=== PATIENT | female | born 1930 | race Caucasian/White ===

== ENCOUNTER 2018-02-28 12:12 | Inpatient (IN) | payer MEDICARE, OTHER ==
--- NOTE | 2018-02-28 12:54 | PDOC ---
History of Present Illness - General Chief Complaint: Shortness of Breath Stated Complaint: CHEST PAIN Time Seen by Provider: 02/28/18 12:54 - History of Present Illness Initial Comments: 88 year old female with PMH of PE (2 years prior on Eliquis), CHF, and HTN currently in [facility] coming in today to the ED from Dr. Kauffman's office for suspected heart failure. Patients complains fo 2- 3 months of gradually worsening SOB with exertion, BL lower extremity edema, and occasional dry cough. She has had her cardiology appointments delayed because of logistical issues with the facility scheduling. Upon seeing Dr. Wright today, he was concerned enough to send her to the ED for admission. She denies fevers, chills, nausea, vomiting, diarrhea, constipation, urinary frequency, bleeding from any orifice, or other sick symptoms. 02/28/18 13:19 Past History - Past Medical History Allergies/Adverse Reactions: Allergies Allergy/AdvReac Type Severity Reaction Status Date / Time No Known Allergies Allergy Verified 02/28/18 12:14 Cardiac Disorders: Yes (on eliquis HX OF P.E) COPD: No HTN: Yes Thyroid Disease: Yes - Surgical History Abdominal Surgery: Yes (colon ca) - Suicide/Smoking/Psychosocial Hx Smoking History: Never smoked Have you smoked in the past 12 months: No Information on smoking cessation initiated: No Hx Alcohol Use: No Drug/Substance Use Hx: No Substance Use Type: None Review of Systems - Review of Systems Constitutional: No: Chills, Diaphoresis, Fever HEENTM: No: Eye Pain, Blurred Vision Respiratory: Yes: Shortness of Breath, SOB with Exertion. No: Cough, SOB at Rest, Hemoptysis Cardiac (ROS): No: Chest Pain, Irregular Heart Rate, Lightheadedness, Palpitations ABD/GI: No: Constipated, Diarrhea, Nausea, Poor Appetite : No: Burning, Dysuria, Discharge, Hematuria, Urgency Musculoskeletal: No: Back Pain, Joint Pain, Muscle Weakness Integumentary: No: Bruising, Erythema, Flushing Neurological: No: Headache, Numbness, Paresthesia *Physical Exam - Vital Signs Last Vital Signs Temp Pulse Resp BP Pulse Ox 97.3 F L 85 18 121/78 98 02/28/18 12:14 02/28/18 12:14 02/28/18 12:14 02/28/18 12:14 02/28/18 12:14 - Physical Exam General Appearance: Yes: Nourished, Appropriately Dressed. No: Apparent Distress HEENT: positive: EOMI, LUZ, Normal ENT Inspection, Normal Voice Neck: positive: Trachea midline, Normal Thyroid, Supple. negative: Tender, Rigid Respiratory/Chest: positive: Crackles (bilaeral LL crackles). negative: Chest Tender, Lungs Clear, Normal Breath Sounds, Respiratory Distress, Accessory Muscle Use Cardiovascular: positive: Regular Rhythm, Regular Rate, JVD. negative: Murmur Gastrointestinal/Abdominal: positive: Normal Bowel Sounds, Flat, Soft. negative : Tender Lymphatic: negative: Adenopathy, Tenderness Musculoskeletal: positive: Normal Inspection, Other (general weakness). negative: Decreased Range of Motion Extremity: positive: Normal Range of Motion, Tender, Pedal Edema, Swelling, Erythema, Other (Bilateral LE pitting edema 3+ to the lower thigh). negative: Normal Inspection Integumentary: positive: Dry, Warm, Erythema, Swelling, Other (Swelling and erythema in bilateral lower extremities). negative: Normal Color ED Treatment Course - LABORATORY CBC & Chemistry Diagram: 02/28/18 13:45 02/28/18 13:45 Medical Decision Making - Medical Decision Making 88 year old female presenting with worsening SOB and LE edema with PE significant fro bilateral crackles and elevated JVD along with CXR demonstrating vascular congestion with some possible hilar fullness. Labs mostly WNL (normal BNP and troponin) but these are non-specific for CHF. EKG demonstrated NSR, without ST wave elevations, and QT prolongation (corrected) at 495. UA did demonstrate a UTI for which we gave 1 G ceftriaxone. Give overall signs of fluid overload, she was also given 40 IV furosemide. Patient admitted under Dr. Sanders with doppler and echo pending. Consult placed for Dr. Kauffman. 02/28/18 15:38 *DC/Admit/Observation/Transfer Diagnosis at time of Disposition: Heart failure Qualifiers: Heart failure type: other Qualified Code(s): I50.89 - Other heart failure; I50.8 - Other heart failure - Discharge Dispostion Condition at time of disposition: Stable Admit: Yes - Referrals - Patient Instructions - Post Discharge Activity
--- NOTE | 2018-02-28 13:57 | PDOC ---
Attending Attestation - Resident Resident Name: Lillie De La Torre - ED Attending Attestation I have performed the following: I have examined & evaluated the patient, The case was reviewed & discussed with the resident, I agree w/resident's findings & plan, Exceptions are as noted - HPI HPI: 02/28/18 15:43 Ms Pink is an 88 yo F h/o PE (2 years prior on Eliquis), CHF, and HTN currently in [facility] coming in today to the ED from Dr. Kauffman's office for fluid overloading, shortness of breath, dyspnea on exertion, suspected diastolic heart failure. She denies fevers, chills, nausea, vomiting, diarrhea, constipation, urinary frequency, bleeding from any orifice, or other sick symptoms. - Physicial Exam PE: 02/28/18 15:45 General Appearance: Yes: Nourished, Appropriately Dressed. No: Apparent Distress Neck: positive: Trachea midline, Normal Thyroid, Supple. negative: Tender, Rigid Respiratory/Chest: positive: Crackles (bilaeral LL crackles). Cardiovascular: positive: Regular Rhythm, Regular Rate, JVD. Gastrointestinal/Abdominal: positive: Normal Bowel Sounds, Flat, Soft. negative : Tender Musculoskeletal: positive: Normal Inspection, Other (general weakness). negative: Decreased Range of Motion Extremity: positive: Normal Range of Motion, Tender, Pedal Edema, Swelling, Erythema - Medical Decision Making 02/28/18 15:45 88 yo F presenting with shortness of breath, probable diastolic heart failure Pt does have a prior h/o PE (currently anticoagulated, pt reports compliance) No fevers or cough to suggest pneumonia Will do labs Will do EKG Will do CXR Will plan to admit 02/28/18 15:47 Laboratory Tests 02/28/18 02/28/18 02/28/18 13:45 13:45 13:45 WBC 9.0 Hgb 11.6 Hct 34.8 Plt Count 283 BUN 36 H Creatinine 0.8 CK-MB (CK-2) 3.468 Troponin I < 0.02 B-Natriuretic Peptide 249.85 Ur Leukocyte Esterase 2+ H Urine WBC (Auto) 18 EKG: SR rate of 85 bpm, axis nml, intervals nml, no TA/STD, t waves upright Case reviewed with Dr Biggs Will admit to her service Clinical impression: diastolic heart failure, initial presentation
[2018-02-28 14:04] LABS: EOS % 2.8 % (0-4.5); HEMOGLOBIN 11.6 GM/dL (10.7-15.3); MCH 29.5 pg (25.7-33.7); MEAN PLT VOLUME 6.8 fl (7.5-11.1); RBC 3.92 M/mm3 (3.60-5.2); RDW 16.7 % (11.6-15.6)
[2018-02-28 14:05] LABS: URINE APPEARANCE CLEAR; URINE BILIRUBIN NEGATIVE (<2.0 mg/dL); URINE COLOR LTYELLOW; URINE GLUCOSE (UA) NEGATIVE (NEGATIVE); URINE KETONE NEGATIVE (NEGATIVE); URINE NITRITE NEGATIVE (NEGATIVE); URINE PROTEIN NEGATIVE (NEGATIVE); URINE UROBILINOGEN NEGATIVE mg/dL (0.2-1.0)
[2018-02-28 14:06] LABS: BASO % 0.8 % (0-2.0); HEMATOCRIT 34.8 % (32.4-45.2); LYMPH % 17.4 % (8-40); MCHC 33.2 g/dl (32.0-36.0); MEAN CELL VOLUME 88.8 fl (80-96); PLATELET COUNT 283 K/MM3 (134-434)
[2018-02-28 14:07] LABS: URINE LEUK ESTERASE 2+ (NEGATIVE)
[2018-02-28 14:09] LABS: EPI CELLS RARE /HPF (FEW); URINE HYALINE CAST 6 /lpf; URINE MUCUS RARE
[2018-02-28 14:25] LABS: CHLORIDE 106 mmol/L (98-107); SODIUM 143 mmol/L (136-145)
[2018-02-28 14:29] LABS: ALBUMIN 3.9 g/dl (3.4-5.0); ANION GAP 6 (8-16); BLOOD UREA NITROGEN 36 mg/dL (7-18); CALCIUM 9.5 mg/dL (8.5-10.1); CO2 31 mmol/L (21-32); GLUCOSE,RANDOM 102 mg/dL (74-106)
[2018-02-28 14:30] LABS: POTASSIUM 4.1 mmol/L (3.5-5.1)
[2018-02-28 14:32] LABS: BILIRUBIN,TOTAL 0.5 mg/dL (0.2-1.0); CREATININE 0.8 mg/dL (0.55-1.02); SGPT/ALT 34 U/L (12-78)
[2018-02-28 14:35] LABS: ALK PHOS 83 U/L (45-117); N-TERMINAL BNP 249.85 pg/ml (5-450); SGOT/AST 46 U/L (15-37)
--- NOTE | 2018-02-28 15:08 | EKG ---
Test Reason : Blood Pressure : / mmHG Vent. Rate : 085 BPM Atrial Rate : 085 BPM P-R Int : 172 ms QRS Dur : 094 ms QT Int : 416 ms P-R-T Axes : 036 -12 015 degrees QTc Int : 495 ms NORMAL SINUS RHYTHM PROLONGED QT ABNORMAL ECG NO PREVIOUS ECGS AVAILABLE Confirmed by PAN AGUILLON MD ([id number]) on 02/28/2018 3:07:50 PM Referred By: Confirmed By:PAN AGUILLON MD
[2018-02-28] MEDS ORDERED: FUROSEMIDE 40 MG/4 ML INJECTABLE VIAL IVPUSH ONE (15:10)
[2018-02-28] MEDS ORDERED: CEFTRIAXONE 1 GM in DEXTROSE 5%-WATER - 100 ML IVPB ONE (15:44)
[2018-02-28] MEDS ORDERED: FUROSEMIDE 40 MG/4 ML INJECTABLE VIAL ONE (16:46)
[2018-02-28] MEDS ORDERED: CEFTRIAXONE 1 GM/50 ML BAG ONE (16:46)
[2018-02-28 17:33] VITALS: BMI 29.2
--- NOTE | 2018-02-28 20:17 | HP ---
Admitting History and Physical - Primary Care Physician PCP: Dara Biggs - Admission History of Present Illness: 88 year old female with PMH of PE (2 years prior on Eliquis), CHF, and HTN currently in [facility] coming in today to the ED from Dr. Kauffman's office for suspected heart failure. Patients complains fo 2- 3 months of gradually worsening SOB with exertion, BL lower extremity edema, and occasional dry cough. She has had her cardiology appointments delayed because of logistical issues with the facility scheduling. Upon seeing Dr. Wright today, he was concerned enough to send her to the ED for admission. She denies fevers, chills, nausea, vomiting, diarrhe. - Past Medical History Cardiovascular: Yes: CHF, HTN - Smoking History Smoking history: Never smoked Have you smoked in the past 12 months: No - Alcohol/Substance Use Hx Alcohol Use: No Home Medications - Allergies Allergies/Adverse Reactions: Allergies Allergy/AdvReac Type Severity Reaction Status Date / Time No Known Allergies Allergy Verified 02/28/18 12:14 - Home Medications Home Medications: Ambulatory Orders Apixaban [Eliquis] 5 mg PO BID 02/28/18 Brinzolamide/Brimonidine Tart [Simbrinza 1%-0.2% Eye Drops] 1 drop OS BID Furosemide [Lasix] 40 mg PO DAILY 02/28/18 Hydrochlorothiazide [Hctz -] 25 mg PO DAILY 02/28/18 Labetalol HCl [Normodyne -] 400 mg PO BID 02/28/18 Losartan Potassium 100 mg PO DAILY 02/28/18 Melatonin 20 mg PO HS 02/28/18 Potassium Chloride 20 meq PO DAILY 02/28/18 Thyroid,Pork [[place] Thyroid] 180 mg PO DAILY 02/28/18 Travoprost [Travatan Z] 1 drop OS HS 02/28/18 Review of Systems - Review of Systems Respiratory: reports: SOB Physical Examination Vital Signs: Vital Signs Temperature 98.2 F 02/28/18 19:05 Pulse Rate 77 02/28/18 19:05 Respiratory Rate 22 02/28/18 19:05 Blood Pressure 132/65 02/28/18 19:05 O2 Sat by Pulse Oximetry (%) 96 02/28/18 19:05 Constitutional: Yes: No Distress HENT: Yes: Atraumatic Neck: Yes: Supple Cardiovascular: Yes: Regular Rate and Rhythm Respiratory: Yes: Rhonchi Gastrointestinal: Yes: Normal Bowel Sounds Extremities: Yes: Other (red , warm , swollen) Edema: Yes Peripheral Pulses WNL: Yes Neurological: Yes: Alert, Oriented Labs: CBC, BMP 02/28/18 13:45 02/28/18 13:45 Problem List - Problems (1) HTN (hypertension) Assessment/Plan: on meds stable Code(s): I10 - ESSENTIAL (PRIMARY) HYPERTENSION Qualifiers: Hypertension type: essential hypertension Qualified Code(s): I10 - Essential (primary) hypertension (2) Heart failure Assessment/Plan: on meds stable Code(s): I50.9 - HEART FAILURE, UNSPECIFIED Qualifiers: Heart failure type: other Qualified Code(s): I50.89 - Other heart failure; I50.8 - Other heart failure (3) Hypothyroidism Assessment/Plan: on med Code(s): E03.9 - HYPOTHYROIDISM, UNSPECIFIED (4) Cellulitis Assessment/Plan: will start abx will get id involved Code(s): L03.90 - CELLULITIS, UNSPECIFIED Assessment/Plan Laboratory Tests 02/28/18 02/28/18 02/28/18 13:45 13:45 13:45 WBC 9.0 RBC 3.92 Hgb 11.6 Hct 34.8 MCV 88.8 MCH 29.5 MCHC 33.2 RDW 16.7 H Plt Count 283 MPV 6.8 L Neutrophils % 73.0 Lymphocytes % 17.4 Monocytes % 6.0 Eosinophils % 2.8 Basophils % 0.8 Sodium 143 Potassium 4.1 Chloride 106 Carbon Dioxide 31 Anion Gap 6 L BUN 36 H Creatinine 0.8 Creat Clearance w eGFR > 60 Random Glucose 102 Calcium 9.5 Total Bilirubin 0.5 AST 46 H ALT 34 Alkaline Phosphatase 83 Creatine Kinase 274 H Creatine Kinase Index 1.2 CK-MB (CK-2) 3.468 Troponin I < 0.02 B-Natriuretic Peptide 249.85 Total Protein 7.0 Albumin 3.9 TSH Urine Color Ltyellow Urine Appearance Clear Urine pH 5.0 Ur Specific [place] 1.009 Urine Protein Negative Urine Glucose (UA) Negative Urine Ketones Negative Urine Blood Negative Urine Nitrite Negative Urine Bilirubin Negative Urine Urobilinogen Negative Ur Leukocyte Esterase 2+ H Urine WBC (Auto) 18 Urine RBC (Auto) 1 Ur Epithelial Cells Rare Hyaline Casts 6 Urine Mucus Rare 02/28/18 14:00 WBC RBC Hgb Hct MCV MCH MCHC RDW Plt Count MPV Neutrophils % Lymphocytes % Monocytes % Eosinophils % Basophils % Sodium Potassium Chloride Carbon Dioxide Anion Gap BUN Creatinine Creat Clearance w eGFR Random Glucose Calcium Total Bilirubin AST ALT Alkaline Phosphatase Creatine Kinase Creatine Kinase Index CK-MB (CK-2) Troponin I B-Natriuretic Peptide Total Protein Albumin TSH 0.82 Urine Color Urine Appearance Urine pH Ur Specific [place] Urine Protein Urine Glucose (UA) Urine Ketones Urine Blood Urine Nitrite Urine Bilirubin Urine Urobilinogen Ur Leukocyte Esterase Urine WBC (Auto) Urine RBC (Auto) Ur Epithelial Cells Hyaline Casts Urine Mucus Active Medications Generic Name Dose Route Start Last Admin Trade Name Freq PRN Reason Stop Dose Admin Acetaminophen 650 mg 02/28/18 20:19 02/28/18 20:44 Tylenol - PO 650 mg Q6H PRN Administration FEVER Apixaban 5 mg 02/28/18 22:00 03/01/18 10:02 Eliquis - PO 5 mg BID LISETH Administration Furosemide 40 mg 03/02/18 06:00 Lasix Injection - IVPUSH BID@0600,1400 LISETH Ceftriaxone Sodium 1 gm/ 50 mls @ 200 mls/hr 02/28/18 23:00 02/28/18 23:17 Dextrose IVPB 200 mls/hr HS LISETH Administration Labetalol HCl 400 mg 02/28/18 22:00 03/01/18 10:03 Normodyne - PO 400 mg BID LISETH Administration Losartan Potassium 100 mg 03/01/18 10:00 03/01/18 10:02 Cozaar - PO 100 mg DAILY LISETH Administration Melatonin 20 mg 02/28/18 22:00 02/28/18 21:46 Melatonin PO 20 mg HS LISETH Administration Non-Formulary Medication 1 drop 02/28/18 22:00 Brinzolamide/Brimonidine Tart [Simbrinza 1%-0.2% Eye Drops] OS BID [facility] Non-Formulary Medication 1 drop 02/28/18 22:00 Travoprost [Travatan Z] OS HS LISETH Spironolactone 25 mg 03/01/18 22:00 Aldactone - PO BID LISETH
[2018-02-28] MEDS: ACETAMINOPHEN 325 MG TABLET (FP) PO PRN (20:44)
[2018-02-28] MEDS: APIXABAN 5 MG TABLET PO SCH (21:45)
[2018-02-28] MEDS: MELATONIN 5 MG TABLETS PO SCH (21:46)
[2018-02-28] MEDS: LABETALOL HCL 200 MG TABLET (FP) PO SCH (21:46)
[2018-02-28] MEDS ORDERED: PATIENT'S OWN MEDICATION (NON-FORMULARY) (Travoprost [Travatan Z] 1 DROP) OS SCH (22:00)
[2018-02-28] MEDS ORDERED: PATIENT'S OWN MEDICATION (NON-FORMULARY) (Brinzolamide/Brimonidine Tart [Simbrinza 1%-0.2% OS SCH (22:00)
[2018-02-28] MEDS ORDERED: cefTRIAXone SODIUM 1 GM VIAL ONE (23:08)
[2018-02-28] MEDS ORDERED: DEXTROSE 5%-WATER - 50 ML IVPB ONE (23:09)
[2018-02-28] MEDS: CEFTRIAXONE 1 GM in DEXTROSE 5%-WATER - 50 ML IVPB SCH (23:17)
[2018-03-01 06:49] LABS: BASO % 0.6 % (0-2.0); EOS % 3.8 % (0-4.5); HEMATOCRIT 31.1 % (32.4-45.2); HEMOGLOBIN 10.6 GM/dL (10.7-15.3); LYMPH % 23.1 % (8-40); MCH 30.1 pg (25.7-33.7); MEAN CELL VOLUME 88.4 fl (80-96); MONO % 9.3 % (3.8-10.2); NEUT % 63.2 % (42.8-82.8); PLATELET COUNT 276 K/MM3 (134-434); RBC 3.52 M/mm3 (3.60-5.2); RDW 16.3 % (11.6-15.6)
[2018-03-01 07:14] LABS: ALBUMIN 3.2 g/dl (3.4-5.0); ANION GAP 5 (8-16); BILIRUBIN,TOTAL 0.5 mg/dL (0.2-1.0); BLOOD UREA NITROGEN 39 mg/dL (7-18); CALCIUM 8.9 mg/dL (8.5-10.1); CHLORIDE 105 mmol/L (98-107); CO2 32 mmol/L (21-32); CREATININE 0.8 mg/dL (0.55-1.02); GLUCOSE,RANDOM 95 mg/dL (74-106); POTASSIUM 3.3 mmol/L (3.5-5.1); SGOT/AST 20 U/L (15-37); SGPT/ALT 25 U/L (12-78); SODIUM 142 mmol/L (136-145); TOT PROT 5.7 g/dl (6.4-8.2)
[2018-03-01 07:15] LABS: ALK PHOS 68 U/L (45-117)
[2018-03-01] MEDS ORDERED: HYDROCHLOROTHIAZIDE 25 MG TABLET (FP) PO SCH (10:00)
[2018-03-01] MEDS ORDERED: FUROSEMIDE 40 MG TABLET (FP) PO SCH (10:00)
[2018-03-01] MEDS: LOSARTAN POTASSIUM 50 MG TABLET (FP) PO SCH (10:02)
[2018-03-01] MEDS: APIXABAN 5 MG TABLET PO SCH ×2 (10:02→21:11)
[2018-03-01] MEDS: LABETALOL HCL 200 MG TABLET (FP) PO SCH ×2 (10:03→21:12)
--- NOTE | 2018-03-01 12:23 | CON.ID ---
Consult Consult Specialty:: infectious diseases Reason for Consultation:: cellulitits of the leg - History of Present Illness Chief Complaint: swelling and pain of the legs History of Present Illness: 88 year old female with PMH of PE (2 years prior on Eliquis), CHF, and HTN currently in [facility] coming in today to the ED from Dr. Kauffman's office for suspected heart failure. Patients complains fo 2- 3 months of gradually worsening SOB with exertion, BL lower extremity edema, and occasional dry cough. She has had her cardiology appointments delayed because of logistical issues with the facility scheduling. Upon seeing Dr. Wright today, he was concerned enough to send her to the ED for admission. She denies fevers, chills, nausea, vomiting, diarrhe. - History Source History Provided By: Patient Limitations to Obtaining History: No Limitations - Past Medical History Cardio/Vascular: Yes: CHF, HTN - Alcohol/Substance Use Hx Alcohol Use: No - Smoking History Smoking history: Never smoked Have you smoked in the past 12 months: No Home Medications - Allergies Allergies/Adverse Reactions: Allergies Allergy/AdvReac Type Severity Reaction Status Date / Time No Known Allergies Allergy Verified 02/28/18 12:14 - Home Medications Home Medications: Ambulatory Orders Apixaban [Eliquis] 5 mg PO BID 02/28/18 Brinzolamide/Brimonidine Tart [Simbrinza 1%-0.2% Eye Drops] 1 drop OS BID Furosemide [Lasix] 40 mg PO DAILY 02/28/18 Hydrochlorothiazide [Hctz -] 25 mg PO DAILY 02/28/18 Labetalol HCl [Normodyne -] 400 mg PO BID 02/28/18 Losartan Potassium 100 mg PO DAILY 02/28/18 Melatonin 20 mg PO HS 02/28/18 Potassium Chloride 20 meq PO DAILY 02/28/18 Thyroid,Pork [[place] Thyroid] 180 mg PO DAILY 02/28/18 Travoprost [Travatan Z] 1 drop OS HS 02/28/18 Furosemide [Lasix -] 40 mg PO DAILY tablet 03/03/18 Spironolactone [Aldactone -] 25 mg PO BID #60 tablet 03/03/18 Review of Systems - Review of Systems Constitutional: reports: No Symptoms Eyes: reports: No Symptoms HENT: reports: No Symptoms Neck: reports: No Symptoms Cardiovascular: reports: No Symptoms Respiratory: reports: No Symptoms Gastrointestinal: reports: No Symptoms Genitourinary: reports: No Symptoms Musculoskeletal: reports: Other Integumentary: reports: Change in Color, Erythema Neurological: reports: No Symptoms Endocrine: reports: No Symptoms Hematology/Lymphatic: reports: No Symptoms Psychiatric: reports: No Symptoms Physical Exam Vital Signs: Vital Signs Temperature 98.1 F 03/01/18 01:00 Pulse Rate 77 03/01/18 01:00 Respiratory Rate 24 03/01/18 01:00 Blood Pressure 123/61 03/01/18 01:00 O2 Sat by Pulse Oximetry (%) 96 03/01/18 06:00 Constitutional: Yes: Calm, Mild Distress Eyes: Yes: Conjunctiva Clear HENT: Yes: Atraumatic, Normocephalic Neck: Yes: Supple Cardiovascular: Yes: Regular Rate and Rhythm Respiratory: Yes: Regular, On Nasal O2, Poor Air Entry Gastrointestinal: Yes: Normal Bowel Sounds, Soft Musculoskeletal: Yes: Other Extremities: Yes: Erythema Edema: LLE: 2+, RLE: 2+ Integumentary: Yes: Erythema Neurological: Yes: Alert, Oriented Psychiatric: Yes: Alert, Oriented Labs: CBC, BMP 03/01/18 05:35 03/01/18 05:35 Imaging - Results Chest X-ray: Report Reviewed, Image Reviewed Assessment/Plan Problem List - Problems (1) Acute on chronic diastolic (congestive) heart failure Code(s): I50.33 - ACUTE ON CHRONIC DIASTOLIC (CONGESTIVE) HEART FAILURE (2) HTN (hypertension) Code(s): I10 - ESSENTIAL (PRIMARY) HYPERTENSION Qualifiers: Hypertension type: essential hypertension Qualified Code(s): I10 - Essential (primary) hypertension (3) Hypothyroidism Code(s): E03.9 - HYPOTHYROIDISM, UNSPECIFIED (4) Pulmonary embolism Code(s): I26.99 - OTHER PULMONARY EMBOLISM WITHOUT ACUTE COR PULMONALE Qualifiers: Pulmonary embolism type: other 5 cellulittis of the leg cx report noted plan patient on ceftriaxone will continue ceftriaxone elevation of the legs rest as per cardiology
--- NOTE | 2018-03-01 12:51 | PN ---
Progress Note (short form) - Note Progress Note: Chief Complaint/Indication: Events noted, notes reviewed, progressive exertional dyspnea and increasing bilateral lower extremity edema in a patient with known history of probable coronary artery disease angina pectoris, diastolic left ventricular dysfunction, hypertensive cardiovascular disease and recent pulmonary embolism. History of Present Illness: Seen and examined on telemetry. Full consult dictated Echocardiography performed January 20, 2018 revealed concentric left ventricular hypertrophy with overall preserved left ventricular systolic function and ejection fraction estimated greater than 55%, mild diastolic left ventricular dysfunction, normal right ventricular size and systolic function, left atrial dilatation, thickened mitral valve leaflets with densely calcified mitral annulus and mild trans-valvular gradient with calculated mitral valve area 1.8 cm by pressure half-time, aortic valve leaflet sclerosis/calcification but no evidence of aortic valve stenosis, trace tricuspid valve regurgitation and no pericardial effusion. Allergies: No known medical allergies. Medical therapy at home: 1. Labetalol 200 mg tablet, 2 tablets twice a day. 2. Cozaar 100 mg once a day. 3. Lasix 40 mg once a day. 4. Hydrochlorothiazide 25 mg once a day. 5. K-Dur 20 milliequivalents once a day. 6. Eliquis 5 mg twice a day. 7. [place] Thyroid 180 mg once a day. 8. Eye drops including Travatan, Prednisone Acetate and Simbrinza as prescribed. Current Medications Acetaminophen (Tylenol -) 650 mg PO Q6H PRN PRN Reason: FEVER Last Admin: 02/28/18 20:44 Dose: 650 mg Apixaban (Eliquis -) 5 mg PO BID [facility] Last Admin: 03/01/18 10:02 Dose: 5 mg Furosemide (Lasix Injection -) 40 mg PO DAILY @0600,1400 [facility] Ceftriaxone Sodium 1 gm/ (Dextrose) 50 mls @ 200 mls/hr IVPB [facility] Last Admin: 02/28/18 23:17 Dose: 200 mls/hr Labetalol HCl (Normodyne -) 400 mg PO BID [facility] Last Admin: 03/01/18 10:03 Dose: 400 mg Losartan Potassium (Cozaar -) 100 mg PO DAILY [facility] Last Admin: 03/01/18 10:02 Dose: 100 mg Melatonin (Melatonin) 20 mg PO [facility] Last Admin: 02/28/18 21:46 Dose: 20 mg Non-Formulary Medication (Brinzolamide/Brimonidine Tart [Simbrinza 1%-0.2% Eye Drops]) 1 drop OS BID LISETH Non-Formulary Medication (Travoprost [Travatan Z]) 1 drop OS HS [facility] Review of Systems: Constitutional: Denies fever, chills or weight loss Head and Neck: Denies headache, photophobia or blurring of vision Respiratory: Denies cough or sputum production Cardiovascular: As noted above Gastrointestinal: Denies nausea, vomiting, diarrhea, constipation or abdominal discomfort Genitourinary: Denies urgency or incontinence Musculoskeletal: History of degenerative joint disease Endocrine: Hypothyroidism Physical Examination: Last Vital Signs Temp Pulse Resp BP Pulse Ox 98.1 F 77 24 123/61 96 03/01/18 01:00 03/01/18 01:00 03/01/18 01:00 03/01/18 01:00 03/01/18 06:00 Intake & Output 02/26/18 02/27/18 02/28/18 03/01/18 23:59 23:59 23:59 23:59 Intake Total 170 Output Total 500 Balance 170 -500 Weight 170 lb 168 lb 8 oz General: Awake, alert, oriented and calm Eyes: Pupils are equally reactive to light and accommodation external ocular muscles are intact anicteric sclera Neck: Supple negative JVD no bruit appreciated Heart: S1 and S2 regular rate and rhythm grade 1-2/6 systolic ejection murmur no clicks or gallops Lungs: Diminished breath sounds at the bases bilaterally with bilateral basal rales Chest: No chest wall deformity or chest wall tenderness Abdomen: Soft and benign normoactive bowel sounds no organomegaly incisional hernia was noted Extremities: 2-3+ bilateral edema and intact distal pulses no calf tenderness ECG: Baseline artifact sinus rhythm at 76 bpm with a minor right-sided conduction delay and nonspecific T wave abnormality no prior EKG available for comparison. Lab Data: Troponin, BNP 02/28/18 13:45 Troponin I < 0.02 B-Natriuretic Peptide 249.85 CBC, BMP 03/01/18 05:35 03/01/18 05:35 Hepatic Panel Total Bilirubin 0.5 mg/dL (0.2-1.0) 03/01/18 05:35 AST 20 U/L (15-37) 03/01/18 05:35 ALT 25 U/L (12-78) 03/01/18 05:35 Alkaline Phosphatase 68 U/L (45-117) 03/01/18 05:35 Albumin 3.2 g/dl (3.4-5.0) L 03/01/18 05:35 ASSESSMENT: 1. Clinical presentation is consistent with acute on chronic class II-III [place] [employer] classification left ventricular failure related to diastolic left ventricular dysfunction. 2. Probable coronary artery disease with no clinical angina pectoris endothelial dysfunction. 3. Mitral valve disease mitral valve stenosis mild in severity. 4. Pulmonary hypertension to be excluded as a culprit to the above-noted clinical presentation with persistent/increasing bilateral lower extremity edema. 5. Hypertensive cardiovascular disease. 6. Hypothyroidism. 7. History of recent pulmonary thromboembolism. 8. History of a renal mass. 9. Chronic bilateral lower extremity edema most likely related to chronic venous insufficiency but as noted above pulmonary hypertension to be excluded as a culprit although echocardiography study performed January 20, 2018 did not reveal any evidence of pulmonary hypertension. 10. History of degenerative joint disease. RECOMMENDATIONS: 1. Continue Labetolol. 2. Continue Cozaar. 3. Continue Lasix but initiate IV Lasix. 4. Discontinue Hydrochlorothiazide and initiate Aldactone therapy with caution. 5. Continue Eliquis therapy with close monitoring of CBC. 6. Recommend bilateral lower extremity venous duplex study for evaluation of venous insufficiency. Thank you for your kind referral Jignesh Wright M.D.
--- NOTE | 2018-03-01 19:14 | PN ---
Progress Note, Physician - Current Medication List Current Medications: Active Medications Acetaminophen (Tylenol -) 650 mg PO Q6H PRN PRN Reason: FEVER Last Admin: 02/28/18 20:44 Dose: 650 mg Apixaban (Eliquis -) 5 mg PO BID [facility] Last Admin: 03/01/18 10:02 Dose: 5 mg Furosemide (Lasix Injection -) 40 mg IVPUSH BID@0600,1400 [facility] Ceftriaxone Sodium 1 gm/ (Dextrose) 50 mls @ 200 mls/hr IVPB HS [facility] Last Admin: 02/28/18 23:17 Dose: 200 mls/hr Labetalol HCl (Normodyne -) 400 mg PO BID [facility] Last Admin: 03/01/18 10:03 Dose: 400 mg Losartan Potassium (Cozaar -) 100 mg PO DAILY [facility] Last Admin: 03/01/18 10:02 Dose: 100 mg Melatonin (Melatonin) 20 mg PO [facility] Last Admin: 02/28/18 21:46 Dose: 20 mg Non-Formulary Medication (Brinzolamide/Brimonidine Tart [Simbrinza 1%-0.2% Eye Drops]) 1 drop OS BID [facility] Non-Formulary Medication (Travoprost [Travatan Z]) 1 drop OS [facility] Spironolactone (Aldactone -) 25 mg PO BID [facility] - Objective Vital Signs: Vital Signs Temperature 97.8 F 03/01/18 18:00 Pulse Rate 78 03/01/18 18:00 Respiratory Rate 22 03/01/18 18:00 Blood Pressure 171/73 03/01/18 18:00 O2 Sat by Pulse Oximetry (%) 93 L 03/01/18 10:00 HENT: Yes: Atraumatic Cardiovascular: Yes: Regular Rate and Rhythm Respiratory: Yes: CTA Bilaterally Gastrointestinal: Yes: Normal Bowel Sounds Extremities: Yes: Other (red and warm) Neurological: Yes: Alert, Oriented Labs: CBC, BMP 03/01/18 05:35 03/01/18 05:35 Problem List - Problems (1) HTN (hypertension) Assessment/Plan: on meds stable Code(s): I10 - ESSENTIAL (PRIMARY) HYPERTENSION Qualifiers: Hypertension type: essential hypertension Qualified Code(s): I10 - Essential (primary) hypertension (2) Heart failure Code(s): I50.9 - HEART FAILURE, UNSPECIFIED Qualifiers: Heart failure type: other Qualified Code(s): I50.89 - Other heart failure; I50.8 - Other heart failure (3) Abdominal wall cellulitis Code(s): L03.311 - CELLULITIS OF ABDOMINAL WALL (4) Cellulitis Assessment/Plan: iv abx Code(s): L03.90 - CELLULITIS, UNSPECIFIED
--- NOTE | 2018-03-01 19:49 | CONS ---
DATE OF CONSULTATION: 03/01/2018 REQUESTING PHYSICIAN: Dara Biggs M.D. CHIEF COMPLAINT: Dyspnea, increasing bilateral lower extremity edema. HISTORY OF PRESENT ILLNESS: The patient is new to our service, was evaluated in the office yesterday. An 88-year-old female of descent with known history of probable coronary artery disease, angina pectoris, diastolic left ventricular dysfunction with chronic class 1 to 2 [place] [employer] classification left ventricular function, mitral valve disease, mitral valve stenosis, mild in severity on echocardiography performed January 20, 2018, hypertensive cardiovascular disease, recent pulmonary thromboembolism, renal mass, evaluation of which is currently in progress, chronic bilateral lower extremity edema, most likely related to chronic venous insufficiency, who was evaluated in the office yesterday with increasing dyspnea and bilateral lower extremity edema which has been noted over the last several weeks. Patient reported dyspnea with minimal physical exertion and in addition increasing bilateral lower extremity edema that has not responded to diuretic therapy administration. The patient currently sleeps in the recliner, and she has denied any orthopnea or paroxysmal nocturnal dyspnea. Patient has denied any history of chest discomfort. Patient denied any palpitation, dizziness, lightheadedness, or syncope. Echocardiography performed January 20, 2018, revealed concentric left ventricular hypertrophy with overall preserved left ventricular systolic function and ejection fraction estimated greater than 55% with mild diastolic left ventricular dysfunction, normal right ventricular size and systolic function, left atrial dilatation, thickened mitral valve leaflets with densely calcified mitral annulus and mild transvalvular gradient with calculated mitral valve area of 1.8 sq cm, blood pressure half time, the aortic valve leaflet sclerosis and calcification with no evidence of aortic valve stenosis and trace tricuspid valve regurgitation with no evidence of pulmonary hypertension. ALLERGIES: No known medical allergies. MEDICATION: Medical therapy at home included labetalol 200 mg tablets, 2 tablets twice a day, Cozaar 100 mg once a day, Lasix 40 mg once a day, hydrochlorothiazide 25 mg once a day, K-Dur 20 mEq once a day, Eliquis 5 mg twice a day, [place] Thyroid 180 mg once a day, eyedrops including Travatan, prednisone, and Simbrinza. PAST MEDICAL HISTORY: Probable coronary artery disease, angina pectoris, diastolic left ventricular dysfunction with chronic class 1 to 2 [place] [employer] classification left ventricular failure, mitral valve disease, mitral valve stenosis, mild in severity, hypertensive cardiovascular disease, hypothyroidism, recent pulmonary thromboembolism, renal mass, chronic bilateral lower extremity edema, most likely related to chronic venous insufficiency, and degenerative joint disease. Patient denied any history of diabetes mellitus or hypercholesterolemia. PAST SURGICAL HISTORY: Dental extractions and subsequent dental implants, tonsillectomy, colon carcinoma, post colectomy, and history of hysterectomy. SOCIAL HISTORY: Patient currently residing at an assisted living facility, denies tobacco abuse or alcohol intake. FAMILY HISTORY: No family history of premature coronary artery disease. REVIEW OF SYSTEMS: Head and neck: Denies headache, photophobia, blurring of vision. Respiratory: No cough, sputum production. Cardiovascular: As noted above. Gastrointestinal: Denies nausea, vomiting, diarrhea, constipation, or abdominal discomfort. Genitourinary: No urgency or frequency. Musculoskeletal: Degenerative joint disease. Endocrine: Hypothyroidism. PHYSICAL EXAMINATION: Vital signs: Blood pressure 123/61 mmHg, pulse rate is 77 beats per minute. Head/Neck: Pupils equal, reactive to light and accommodation. Extraocular muscles intact. Anicteric sclerae. Negative JVD. No bruit appreciated. Chest: Diminished breath sounds at the bases bilaterally with bilateral basal rales. Cardiovascular: S1, S2. Regularly rate and rhythm. Grade 1 to 2 over 6 systolic ejection murmur. No clicks or gallops. Abdomen: Soft, benign. Normoactive bowel sounds. Extremity: 2 to 3 plus bilateral edema. Intact distal pulses. No calf tenderness. Electrocardiogram reveals sinus rhythm with a minor right-sided conduction delay and nonspecific T wave abnormality. Troponin less than 0.02. BNP 249. CBC revealed white cell count 7.0, hemoglobin 10.6, platelets 276. Basic metabolic panel revealed sodium 142, potassium 3.3, BUN 39, creatinine 0.8, glucose 95, AST 20, ALT 25. ASSESSMENT: 1. Clinical presentation is consistent with [id number] class 2 to 3 [place] [employer] classification left ventricular failure related to diastolic left ventricular dysfunction. 2. Probable coronary artery disease with no clinical angina pectoris. 3. Mitral valve disease, mitral valve stenosis, mild in severity. 4. Pulmonary hypertension to be excluded culprit to the above noted clinical presentation with persistent/increasing bilateral lower extremity edema. 5. Hypertensive cardiovascular disease. 6. Hypothyroidism. 7. History of recent pulmonary thromboembolism. 8. History of renal mass. 9. Chronic bilateral lower extremity edema most likely related to chronic venous insufficiency but as noted above, pulmonary hypertension to be excluded as a culprit, although echocardiography study performed January 20, 2018, and yesterday did not reveal any evidence of pulmonary hypertension. 10. History of degenerative joint disease. RECOMMENDATION: 1. Continuation of labetalol therapy. 2. Continuation of Cozaar therapy. 3. Continuation of Lasix with initiation of IV Lasix. 4. Discontinuation of hydrochlorothiazide therapy, initiation of Aldactone therapy with caution. 5. Continuation of Eliquis therapy with close monitoring of CBC. 6. Recommend bilateral lower extremity venous duplex study for evaluation of venous insufficiency. Thank you for the referral. SHAQUILLE STRICKLAND M.D. [id number] MTDD
[2018-03-01] MEDS ORDERED: PT OWN MED DRAWER 7, Y5N ONE (21:03)
[2018-03-01] MEDS ORDERED: cefTRIAXone SODIUM 1 GM VIAL ONE (21:03)
[2018-03-01] MEDS ORDERED: DEXTROSE 5%-WATER - 50 ML IVPB ONE (21:04)
[2018-03-01] MEDS: CEFTRIAXONE 1 GM in DEXTROSE 5%-WATER - 50 ML IVPB SCH (21:12)
[2018-03-01] MEDS: SPIRONOLACTONE 25 MG TABLET (FP) PO SCH (21:12)
[2018-03-01] MEDS: MELATONIN 5 MG TABLETS PO SCH (21:12)
[2018-03-01] MEDS: ACETAMINOPHEN 325 MG TABLET (FP) PO PRN (21:12)
[2018-03-01] MEDS ORDERED: CALCIUM CARBONATE SUSPENSION - 500 MG/5 ML ML PO PRN (22:51)
[2018-03-02] MEDS: ACETAMINOPHEN 325 MG TABLET (FP) PO PRN ×2 (05:06→20:13)
[2018-03-02] MEDS: FUROSEMIDE 40 MG/4 ML INJECTABLE VIAL IVPUSH SCH ×2 (05:06→14:38)
[2018-03-02 07:10] LABS: BASO % 0.6 % (0-2.0); EOS % 5.3 % (0-4.5); HEMATOCRIT 32.7 % (32.4-45.2); HEMOGLOBIN 10.9 GM/dL (10.7-15.3); LYMPH % 20.2 % (8-40); MCH 29.7 pg (25.7-33.7); MCHC 33.4 g/dl (32.0-36.0); MEAN PLT VOLUME 6.8 fl (7.5-11.1); MONO % 9.6 % (3.8-10.2); NEUT % 64.3 % (42.8-82.8); PLATELET COUNT 265 K/MM3 (134-434); RBC 3.68 M/mm3 (3.60-5.2); RDW 16.2 % (11.6-15.6); WHITE BLOOD COUNT 6.7 K/mm3 (4.0-10.0)
[2018-03-02 07:34] LABS: CHLORIDE 103 mmol/L (98-107); POTASSIUM 3.3 mmol/L (3.5-5.1); SODIUM 142 mmol/L (136-145)
[2018-03-02 07:43] LABS: ANION GAP 7 (8-16); BLOOD UREA NITROGEN 37 mg/dL (7-18); CALCIUM 9.2 mg/dL (8.5-10.1); CO2 32 mmol/L (21-32); GLUCOSE,RANDOM 99 mg/dL (74-106)
[2018-03-02] MEDS: LOSARTAN POTASSIUM 50 MG TABLET (FP) PO SCH (10:05)
[2018-03-02] MEDS: SPIRONOLACTONE 25 MG TABLET (FP) PO SCH ×2 (10:05→22:18)
[2018-03-02] MEDS: LABETALOL HCL 200 MG TABLET (FP) PO SCH ×2 (10:06→22:18)
[2018-03-02] MEDS: APIXABAN 5 MG TABLET PO SCH ×2 (10:06→22:18)
--- NOTE | 2018-03-02 11:21 | PN ---
Progress Note, Physician History of Present Illness: Dyspnea and lower extremity edema improving with diuresis. - Current Medication List Current Medications: Active Medications Acetaminophen (Tylenol -) 650 mg PO Q6H PRN PRN Reason: FEVER Last Admin: 03/02/18 05:06 Dose: 650 mg Apixaban (Eliquis -) 5 mg PO BID [facility] Last Admin: 03/02/18 10:06 Dose: 5 mg Calcium Carbonate (Calcium Carb Oral Suspension -) 500 mg PO Q8H PRN PRN Reason: INDIGESTION Last Admin: 03/01/18 23:25 Dose: 500 mg Furosemide (Lasix Injection -) 40 mg IVPUSH BID@0600,1400 [facility] Last Admin: 03/02/18 05:06 Dose: 40 mg Ceftriaxone Sodium 1 gm/ (Dextrose) 50 mls @ 200 mls/hr IVPB [facility] Last Admin: 03/01/18 21:12 Dose: 200 mls/hr Labetalol HCl (Normodyne -) 400 mg PO BID [facility] Last Admin: 03/02/18 10:06 Dose: 400 mg Losartan Potassium (Cozaar -) 100 mg PO DAILY [facility] Last Admin: 03/02/18 10:05 Dose: 100 mg Melatonin (Melatonin) 20 mg PO [facility] Last Admin: 03/01/18 21:12 Dose: 20 mg Non-Formulary Medication (Brinzolamide/Brimonidine Tart [Simbrinza 1%-0.2% Eye Drops]) 1 drop OS BID [facility] Non-Formulary Medication (Travoprost [Travatan Z]) 1 drop OS [facility] Spironolactone (Aldactone -) 25 mg PO BID [facility] Last Admin: 03/02/18 10:05 Dose: 25 mg - Objective Vital Signs: Vital Signs Temperature 97.4 F L 03/02/18 05:20 Pulse Rate 79 03/02/18 05:20 Respiratory Rate 20 03/02/18 05:20 Blood Pressure 156/83 03/02/18 05:20 O2 Sat by Pulse Oximetry (%) 93 L 03/01/18 21:00 Constitutional: Yes: No Distress, Calm Neck: Yes: Supple Cardiovascular: Yes: Regular Rate and Rhythm Respiratory: Yes: Regular, Diminished, On Nasal O2 Gastrointestinal: Yes: Normal Bowel Sounds, Soft Edema: Yes Edema: LLE: Trace, RLE: Trace Integumentary: Yes: Erythema, Venous Stasis Changes Labs: CBC, BMP 03/02/18 06:38 03/02/18 06:38 Problem List - Problems (1) Acute on chronic diastolic (congestive) heart failure Code(s): I50.33 - ACUTE ON CHRONIC DIASTOLIC (CONGESTIVE) HEART FAILURE (2) HTN (hypertension) Code(s): I10 - ESSENTIAL (PRIMARY) HYPERTENSION Qualifiers: Hypertension type: essential hypertension Qualified Code(s): I10 - Essential (primary) hypertension (3) Hypothyroidism Code(s): E03.9 - HYPOTHYROIDISM, UNSPECIFIED (4) Pulmonary embolism Code(s): I26.99 - OTHER PULMONARY EMBOLISM WITHOUT ACUTE COR PULMONALE Qualifiers: Pulmonary embolism type: other Assessment/Plan Echocardiography performed January 20, 2018 revealed concentric left ventricular hypertrophy with overall preserved left ventricular systolic function and ejection fraction estimated greater than 55%, mild diastolic left ventricular dysfunction, normal right ventricular size and systolic function, left atrial dilatation, thickened mitral valve leaflets with densely calcified mitral annulus and mild trans-valvular gradient with calculated mitral valve area 1.8 cm by pressure half-time, aortic valve leaflet sclerosis/calcification but no evidence of aortic valve stenosis, trace tricuspid valve regurgitation and no pericardial effusion. Echo 02/28/2018: Normal LV size and fxn, functional MS, mild WI, abnl LV compliance 1. Acute on chronic diastolic left ventricular failure improving 2. Probable coronary artery disease with no clinical angina pectoris endothelial dysfunction. 3. Mitral valve disease mitral valve stenosis mild in severity. 4. Hypertensive cardiovascular disease. 5. Hypothyroidism. 6. History of recent pulmonary thromboembolism. 7. History of a renal mass. 8. Chronic bilateral lower extremity edema most likely related to chronic venous insufficiency but as noted above pulmonary hypertension to be excluded as a culprit although echocardiography study performed January 20, 2018 did not reveal any evidence of pulmonary hypertension. 9. History of degenerative joint disease. RECOMMENDATIONS: 1. Continue Labetolol 400 bid 2. Continue Cozaar 100 qd 3. Decrease Lasix 40 IV qd with monitor diuretic response, renal fxn and electrolytes 4. Continue Aldactone 25 bid with caution. 5. Continue Eliquis 5 bid with close monitoring of CBC. 6. Bilateral lower extremity venous duplex study excluded DVT
--- NOTE | 2018-03-02 14:24 | PN ---
Progress Note, Physician History of Present Illness: patient stable lower ext edema and redness improving feels a little better than yesterday - Current Medication List Current Medications: Active Medications Acetaminophen (Tylenol -) 650 mg PO Q6H PRN PRN Reason: FEVER Last Admin: 03/02/18 05:06 Dose: 650 mg Apixaban (Eliquis -) 5 mg PO BID [facility] Last Admin: 03/02/18 10:06 Dose: 5 mg Calcium Carbonate (Calcium Carb Oral Suspension -) 500 mg PO Q8H PRN PRN Reason: INDIGESTION Last Admin: 03/01/18 23:25 Dose: 500 mg Furosemide (Lasix Injection -) 40 mg IVPUSH BID@0600,1400 [facility] Stop: 03/03/18 06:00 Last Admin: 03/02/18 05:06 Dose: 40 mg Furosemide (Lasix Injection -) 40 mg IVPUSH DAILY [facility] Ceftriaxone Sodium 1 gm/ (Dextrose) 50 mls @ 200 mls/hr IVPB HS [facility] Last Admin: 03/01/18 21:12 Dose: 200 mls/hr Labetalol HCl (Normodyne -) 400 mg PO BID [facility] Last Admin: 03/02/18 10:06 Dose: 400 mg Losartan Potassium (Cozaar -) 100 mg PO DAILY [facility] Last Admin: 03/02/18 10:05 Dose: 100 mg Melatonin (Melatonin) 20 mg PO HS [facility] Last Admin: 03/01/18 21:12 Dose: 20 mg Non-Formulary Medication (Brinzolamide/Brimonidine Tart [Simbrinza 1%-0.2% Eye Drops]) 1 drop OS BID [facility] Non-Formulary Medication (Travoprost [Travatan Z]) 1 drop OS HS [facility] Potassium Chloride (K-Dur -) 40 meq PO DAILY [facility] Spironolactone (Aldactone -) 25 mg PO BID [facility] Last Admin: 03/02/18 10:05 Dose: 25 mg - Objective Vital Signs: Vital Signs Temperature 97.8 F 03/02/18 10:00 Pulse Rate 85 03/02/18 10:00 Respiratory Rate 20 03/02/18 10:00 Blood Pressure 117/56 03/02/18 10:00 O2 Sat by Pulse Oximetry (%) 93 L 03/02/18 09:00 Constitutional: Yes: No Distress, Calm Cardiovascular: Yes: Regular Rate and Rhythm Respiratory: Yes: Regular, CTA Bilaterally Gastrointestinal: Yes: Normal Bowel Sounds, Soft Musculoskeletal: Yes: Other Extremities: Yes: Erythema, Other Edema: LLE: 1+, RLE: 1+ Neurological: Yes: Alert, Oriented Psychiatric: Yes: Alert, Oriented Labs: CBC, BMP 03/02/18 06:38 03/02/18 06:38 Assessment/Plan Problem List - Problems (1) Acute on chronic diastolic (congestive) heart failure Code(s): I50.33 - ACUTE ON CHRONIC DIASTOLIC (CONGESTIVE) HEART FAILURE (2) HTN (hypertension) Code(s): I10 - ESSENTIAL (PRIMARY) HYPERTENSION Qualifiers: Hypertension type: essential hypertension Qualified Code(s): I10 - Essential (primary) hypertension (3) Hypothyroidism Code(s): E03.9 - HYPOTHYROIDISM, UNSPECIFIED (4) Pulmonary embolism Code(s): I26.99 - OTHER PULMONARY EMBOLISM WITHOUT ACUTE COR PULMONALE Qualifiers: Pulmonary embolism type: other 5 cellulittis of the leg cx report noted plan we will continue ceftriaxone for senthil will change to oral abx probably by tomorrow rest as per cardio improving
--- NOTE | 2018-03-02 17:01 | PN ---
Progress Note, Physician - Current Medication List Current Medications: Active Medications Acetaminophen (Tylenol -) 650 mg PO Q6H PRN PRN Reason: FEVER Last Admin: 03/02/18 05:06 Dose: 650 mg Apixaban (Eliquis -) 5 mg PO BID [facility] Last Admin: 03/02/18 10:06 Dose: 5 mg Calcium Carbonate (Calcium Carb Oral Suspension -) 500 mg PO Q8H PRN PRN Reason: INDIGESTION Last Admin: 03/01/18 23:25 Dose: 500 mg Furosemide (Lasix Injection -) 40 mg IVPUSH BID@0600,1400 [facility] Stop: 03/03/18 06:00 Last Admin: 03/02/18 14:38 Dose: Not Given Furosemide (Lasix Injection -) 40 mg IVPUSH DAILY [facility] Ceftriaxone Sodium 1 gm/ (Dextrose) 50 mls @ 200 mls/hr IVPB HS [facility] Last Admin: 03/01/18 21:12 Dose: 200 mls/hr Labetalol HCl (Normodyne -) 400 mg PO BID [facility] Last Admin: 03/02/18 10:06 Dose: 400 mg Losartan Potassium (Cozaar -) 100 mg PO DAILY [facility] Last Admin: 03/02/18 10:05 Dose: 100 mg Melatonin (Melatonin) 20 mg PO HS [facility] Last Admin: 03/01/18 21:12 Dose: 20 mg Non-Formulary Medication (Brinzolamide/Brimonidine Tart [Simbrinza 1%-0.2% Eye Drops]) 1 drop OS BID [facility] Non-Formulary Medication (Travoprost [Travatan Z]) 1 drop OS HS [facility] Potassium Chloride (K-Dur -) 40 meq PO DAILY [facility] Spironolactone (Aldactone -) 25 mg PO BID [facility] Last Admin: 03/02/18 10:05 Dose: 25 mg - Objective Vital Signs: Vital Signs Temperature 97.8 F 03/02/18 10:00 Pulse Rate 85 03/02/18 10:00 Respiratory Rate 20 03/02/18 10:00 Blood Pressure 117/56 03/02/18 10:00 O2 Sat by Pulse Oximetry (%) 93 L 03/02/18 09:00 Constitutional: Yes: No Distress HENT: Yes: Atraumatic Neck: Yes: Supple Cardiovascular: Yes: Regular Rate and Rhythm Respiratory: Yes: CTA Bilaterally Gastrointestinal: Yes: Normal Bowel Sounds Extremities: Yes: Other (still warm, redness improved) Edema: Yes Edema: LLE: 1+, RLE: 1+ Neurological: Yes: Alert, Oriented Labs: CBC, BMP 03/02/18 06:38 03/02/18 06:38 Problem List - Problems (1) HTN (hypertension) Assessment/Plan: on meds stable Code(s): I10 - ESSENTIAL (PRIMARY) HYPERTENSION Qualifiers: Hypertension type: essential hypertension Qualified Code(s): I10 - Essential (primary) hypertension (2) Heart failure Assessment/Plan: on meds stable Code(s): I50.9 - HEART FAILURE, UNSPECIFIED Qualifiers: Heart failure type: other Qualified Code(s): I50.89 - Other heart failure; I50.8 - Other heart failure (3) Cellulitis Assessment/Plan: iv abx Code(s): L03.90 - CELLULITIS, UNSPECIFIED
[2018-03-02] MEDS ORDERED: PT OWN MED DRAWER 7, Y5N ONE (21:18)
[2018-03-02] MEDS ORDERED: cefTRIAXone SODIUM 1 GM VIAL ONE (21:23)
[2018-03-02] MEDS ORDERED: DEXTROSE 5%-WATER - 50 ML IVPB ONE (21:23)
[2018-03-02] MEDS: MELATONIN 5 MG TABLETS PO SCH (22:19)
[2018-03-02] MEDS: CEFTRIAXONE 1 GM in DEXTROSE 5%-WATER - 50 ML IVPB SCH (22:19)
[2018-03-03] MEDS ORDERED: PT OWN MED DRAWER 7, Y5N ONE ×2 (05:12→22:50)
[2018-03-03] MEDS: FUROSEMIDE 40 MG/4 ML INJECTABLE VIAL IVPUSH SCH (06:10)
[2018-03-03] MEDS: ACETAMINOPHEN 325 MG TABLET (FP) PO PRN ×3 (08:19→22:45)
--- NOTE | 2018-03-03 09:40 | PN ---
Progress Note, Physician History of Present Illness: Dyspnea and lower extremity edema improving with diuresis. - Current Medication List Current Medications: Active Medications Acetaminophen (Tylenol -) 650 mg PO Q6H PRN PRN Reason: FEVER Last Admin: 03/03/18 08:19 Dose: 650 mg Apixaban (Eliquis -) 5 mg PO BID [facility] Last Admin: 03/02/18 22:18 Dose: 5 mg Calcium Carbonate (Calcium Carb Oral Suspension -) 500 mg PO Q8H PRN PRN Reason: INDIGESTION Last Admin: 03/01/18 23:25 Dose: 500 mg Furosemide (Lasix Injection -) 40 mg IVPUSH DAILY [facility] Ceftriaxone Sodium 1 gm/ (Dextrose) 50 mls @ 200 mls/hr IVPB HS [facility] Last Admin: 03/02/18 22:19 Dose: 200 mls/hr Labetalol HCl (Normodyne -) 400 mg PO BID [facility] Last Admin: 03/02/18 22:18 Dose: 400 mg Losartan Potassium (Cozaar -) 100 mg PO DAILY [facility] Last Admin: 03/02/18 10:05 Dose: 100 mg Melatonin (Melatonin) 20 mg PO HS [facility] Last Admin: 03/02/18 22:19 Dose: 20 mg Non-Formulary Medication (Brinzolamide/Brimonidine Tart [Simbrinza 1%-0.2% Eye Drops]) 1 drop OS BID [facility] Non-Formulary Medication (Travoprost [Travatan Z]) 1 drop OS HS [facility] Potassium Chloride (K-Dur -) 40 meq PO DAILY [facility] Spironolactone (Aldactone -) 25 mg PO BID [facility] Last Admin: 03/02/18 22:18 Dose: 25 mg - Objective Vital Signs: Vital Signs Temperature 97.8 F 03/03/18 06:00 Pulse Rate 75 03/03/18 06:00 Respiratory Rate 18 03/03/18 06:00 Blood Pressure 133/78 03/03/18 06:00 O2 Sat by Pulse Oximetry (%) 93 L 03/02/18 21:00 Constitutional: Yes: No Distress, Calm Neck: Yes: Supple Cardiovascular: Yes: Regular Rate and Rhythm Respiratory: Yes: Regular, Diminished Gastrointestinal: Yes: Normal Bowel Sounds, Soft Edema: Yes Edema: LLE: Trace, RLE: Trace Integumentary: Yes: Erythema, Venous Stasis Changes Labs: CBC, BMP 03/02/18 06:38 03/02/18 06:38 Problem List - Problems (1) Acute on chronic diastolic (congestive) heart failure Code(s): I50.33 - ACUTE ON CHRONIC DIASTOLIC (CONGESTIVE) HEART FAILURE (2) HTN (hypertension) Code(s): I10 - ESSENTIAL (PRIMARY) HYPERTENSION Qualifiers: Hypertension type: essential hypertension Qualified Code(s): I10 - Essential (primary) hypertension (3) Hypothyroidism Code(s): E03.9 - HYPOTHYROIDISM, UNSPECIFIED (4) Pulmonary embolism Code(s): I26.99 - OTHER PULMONARY EMBOLISM WITHOUT ACUTE COR PULMONALE Qualifiers: Pulmonary embolism type: other Assessment/Plan Echocardiography performed January 20, 2018 revealed concentric left ventricular hypertrophy with overall preserved left ventricular systolic function and ejection fraction estimated greater than 55%, mild diastolic left ventricular dysfunction, normal right ventricular size and systolic function, left atrial dilatation, thickened mitral valve leaflets with densely calcified mitral annulus and mild trans-valvular gradient with calculated mitral valve area 1.8 cm by pressure half-time, aortic valve leaflet sclerosis/calcification but no evidence of aortic valve stenosis, trace tricuspid valve regurgitation and no pericardial effusion. Echo 02/28/2018: Normal LV size and fxn, functional MS, mild [place], abnl LV compliance 1. Acute on chronic diastolic left ventricular failure improving 2. Probable coronary artery disease with no clinical angina pectoris endothelial dysfunction. 3. Mitral valve disease mitral valve stenosis mild in severity. 4. Hypertensive cardiovascular disease. 5. Hypothyroidism. 6. History of recent pulmonary thromboembolism. 7. History of a renal mass. 8. Chronic bilateral lower extremity edema most likely related to chronic venous insufficiency but as noted above pulmonary hypertension to be excluded as a culprit although echocardiography study performed January 20, 2018 did not reveal any evidence of pulmonary hypertension. 9. History of degenerative joint disease. RECOMMENDATIONS: 1. Continue Labetolol 400 bid 2. Continue Cozaar 100 qd 3. Resume Lasix 40 po qd with monitor diuretic response, renal fxn and electrolytes, replete K as you are 4. Continue Aldactone 25 bid with caution. 5. Continue Eliquis 5 bid with close monitoring of CBC. 6. Complete empiric abx course 7. Encourage ambulation
[2018-03-03] MEDS ORDERED: FUROSEMIDE 40 MG/4 ML INJECTABLE VIAL IVPUSH SCH (10:00)
[2018-03-03] MEDS: LABETALOL HCL 200 MG TABLET (FP) PO SCH ×2 (10:01→21:09)
[2018-03-03] MEDS: LOSARTAN POTASSIUM 50 MG TABLET (FP) PO SCH (10:01)
[2018-03-03] MEDS: SPIRONOLACTONE 25 MG TABLET (FP) PO SCH ×2 (10:01→21:09)
[2018-03-03] MEDS: POTASSIUM CHLORIDE TABS 20 MEQ TABLET.ER (FP) PO SCH (10:02)
[2018-03-03] MEDS: APIXABAN 5 MG TABLET PO SCH ×2 (10:02→21:09)
[2018-03-03] MEDS: FUROSEMIDE 40 MG TABLET (FP) PO SCH (10:10)
--- NOTE | 2018-03-03 15:15 | PN ---
Progress Note, Physician History of Present Illness: patient stable improving - Current Medication List Current Medications: Active Medications Acetaminophen (Tylenol -) 650 mg PO Q6H PRN PRN Reason: FEVER Last Admin: 03/03/18 08:19 Dose: 650 mg Apixaban (Eliquis -) 5 mg PO BID [facility] Last Admin: 03/03/18 10:02 Dose: 5 mg Calcium Carbonate (Calcium Carb Oral Suspension -) 500 mg PO Q8H PRN PRN Reason: INDIGESTION Last Admin: 03/01/18 23:25 Dose: 500 mg Furosemide (Lasix -) 40 mg PO DAILY [facility] Last Admin: 03/03/18 10:10 Dose: 40 mg Ceftriaxone Sodium 1 gm/ (Dextrose) 50 mls @ 200 mls/hr IVPB [facility] Last Admin: 03/02/18 22:19 Dose: 200 mls/hr Labetalol HCl (Normodyne -) 400 mg PO BID [facility] Last Admin: 03/03/18 10:01 Dose: 400 mg Losartan Potassium (Cozaar -) 100 mg PO DAILY [facility] Last Admin: 03/03/18 10:01 Dose: 100 mg Melatonin (Melatonin) 20 mg PO HS [facility] Last Admin: 03/02/18 22:19 Dose: 20 mg Non-Formulary Medication (Brinzolamide/Brimonidine Tart [Simbrinza 1%-0.2% Eye Drops]) 1 drop OS BID [facility] Non-Formulary Medication (Travoprost [Travatan Z]) 1 drop OS [facility] Potassium Chloride (K-Dur -) 40 meq PO DAILY [facility] Last Admin: 03/03/18 10:02 Dose: 40 meq Spironolactone (Aldactone -) 25 mg PO BID [facility] Last Admin: 03/03/18 10:01 Dose: 25 mg - Objective Vital Signs: Vital Signs Temperature 97.8 F 03/03/18 06:00 Pulse Rate 75 03/03/18 06:00 Respiratory Rate 18 03/03/18 06:00 Blood Pressure 133/78 03/03/18 06:00 O2 Sat by Pulse Oximetry (%) 93 L 03/02/18 21:00 Constitutional: Yes: No Distress, Calm Cardiovascular: Yes: Regular Rate and Rhythm Respiratory: Yes: Regular, CTA Bilaterally Musculoskeletal: Yes: WNL Extremities: Yes: WNL Neurological: Yes: Alert, Oriented Psychiatric: Yes: Alert, Oriented Labs: CBC, BMP 03/02/18 06:38 03/02/18 06:38 Assessment/Plan Problem List - Problems (1) Acute on chronic diastolic (congestive) heart failure Code(s): I50.33 - ACUTE ON CHRONIC DIASTOLIC (CONGESTIVE) HEART FAILURE (2) HTN (hypertension) Code(s): I10 - ESSENTIAL (PRIMARY) HYPERTENSION Qualifiers: Hypertension type: essential hypertension Qualified Code(s): I10 - Essential (primary) hypertension (3) Hypothyroidism Code(s): E03.9 - HYPOTHYROIDISM, UNSPECIFIED (4) Pulmonary embolism Code(s): I26.99 - OTHER PULMONARY EMBOLISM WITHOUT ACUTE COR PULMONALE Qualifiers: Pulmonary embolism type: other 5 cellulittis of the leg cx report noted will change to oral abx probably by tomorrow rest as per cardio improving
--- NOTE | 2018-03-03 18:12 | PN ---
Progress Note, Physician - Current Medication List Current Medications: Active Medications Acetaminophen (Tylenol -) 650 mg PO Q6H PRN PRN Reason: FEVER Last Admin: 03/03/18 15:51 Dose: 650 mg Apixaban (Eliquis -) 5 mg PO BID [facility] Last Admin: 03/03/18 10:02 Dose: 5 mg Calcium Carbonate (Calcium Carb Oral Suspension -) 500 mg PO Q8H PRN PRN Reason: INDIGESTION Last Admin: 03/01/18 23:25 Dose: 500 mg Furosemide (Lasix -) 40 mg PO DAILY [facility] Last Admin: 03/03/18 10:10 Dose: 40 mg Ceftriaxone Sodium 1 gm/ (Dextrose) 50 mls @ 200 mls/hr IVPB [facility] Last Admin: 03/02/18 22:19 Dose: 200 mls/hr Labetalol HCl (Normodyne -) 400 mg PO BID [facility] Last Admin: 03/03/18 10:01 Dose: 400 mg Losartan Potassium (Cozaar -) 100 mg PO DAILY [facility] Last Admin: 03/03/18 10:01 Dose: 100 mg Melatonin (Melatonin) 20 mg PO HS [facility] Last Admin: 03/02/18 22:19 Dose: 20 mg Non-Formulary Medication (Brinzolamide/Brimonidine Tart [Simbrinza 1%-0.2% Eye Drops]) 1 drop OS BID [facility] Non-Formulary Medication (Travoprost [Travatan Z]) 1 drop OS [facility] Potassium Chloride (K-Dur -) 40 meq PO DAILY [facility] Last Admin: 03/03/18 10:02 Dose: 40 meq Spironolactone (Aldactone -) 25 mg PO BID [facility] Last Admin: 03/03/18 10:01 Dose: 25 mg - Objective Vital Signs: Vital Signs Temperature 98.3 F 03/03/18 15:00 Pulse Rate 73 03/03/18 15:00 Respiratory Rate 20 03/03/18 15:00 Blood Pressure 118/63 03/03/18 15:00 O2 Sat by Pulse Oximetry (%) 95 03/03/18 09:00 Constitutional: Yes: No Distress HENT: Yes: Atraumatic Neck: Yes: Supple Cardiovascular: Yes: Regular Rate and Rhythm Respiratory: Yes: CTA Bilaterally Gastrointestinal: Yes: Normal Bowel Sounds Extremities: Yes: Other (swelling and redness b/l deon much improved) Neurological: Yes: Alert, Oriented Labs: CBC, BMP 03/02/18 06:38 03/02/18 06:38 Problem List - Problems (1) HTN (hypertension) Assessment/Plan: on meds stable Code(s): I10 - ESSENTIAL (PRIMARY) HYPERTENSION Qualifiers: Hypertension type: essential hypertension Qualified Code(s): I10 - Essential (primary) hypertension (2) Heart failure Assessment/Plan: on meds ...iv diuretics...switch to po stable Code(s): I50.9 - HEART FAILURE, UNSPECIFIED Qualifiers: Heart failure type: other Qualified Code(s): I50.89 - Other heart failure; I50.8 - Other heart failure (3) Cellulitis Assessment/Plan: iv abx..will switch to po Code(s): L03.90 - CELLULITIS, UNSPECIFIED Assessment/Plan DR LEBRON COVERING FROM Wednesday-WednesdayMARCH 07
[2018-03-03] MEDS: MELATONIN 5 MG TABLETS PO SCH (21:10)
[2018-03-03] MEDS: THYROID PORK 180 MG PO SCH (22:56)
[2018-03-04] MEDS: AMOX TR/POT CLAV 875MG/125MG TABLETS (FP) PO SCH ×2 (08:22→17:19)
[2018-03-04] MEDS: APIXABAN 5 MG TABLET PO SCH ×2 (10:22→22:02)
[2018-03-04] MEDS: LABETALOL HCL 200 MG TABLET (FP) PO SCH ×2 (10:22→22:03)
[2018-03-04] MEDS: THYROID PORK 180 MG PO SCH (10:22)
[2018-03-04] MEDS: SPIRONOLACTONE 25 MG TABLET (FP) PO SCH ×2 (10:22→22:03)
[2018-03-04] MEDS: FUROSEMIDE 40 MG TABLET (FP) PO SCH (10:22)
[2018-03-04] MEDS: POTASSIUM CHLORIDE TABS 20 MEQ TABLET.ER (FP) PO SCH (10:22)
[2018-03-04] MEDS: LOSARTAN POTASSIUM 50 MG TABLET (FP) PO SCH (10:22)
[2018-03-04] MEDS ORDERED: PT OWN MED DRAWER 7, Y5N ONE ×2 (10:25→21:39)
[2018-03-04] MEDS: ACETAMINOPHEN 325 MG TABLET (FP) PO PRN (10:38)
--- NOTE | 2018-03-04 11:30 | PN ---
Progress Note, Physician History of Present Illness: Dyspnea and lower extremity edema improving with diuresis. Ambulating with slight wheeze. - Current Medication List Current Medications: Active Medications Acetaminophen (Tylenol -) 650 mg PO Q6H PRN PRN Reason: FEVER Last Admin: 03/04/18 10:38 Dose: 650 mg Amoxicillin/Clavulanate Potassium (Augmentin - 875mg Tablet) 1 tab PO BID@0800, 1730 [facility] Last Admin: 03/04/18 08:22 Dose: 1 tab Apixaban (Eliquis -) 5 mg PO BID [facility] Last Admin: 03/04/18 10:22 Dose: 5 mg Calcium Carbonate (Calcium Carb Oral Suspension -) 500 mg PO Q8H PRN PRN Reason: INDIGESTION Last Admin: 03/01/18 23:25 Dose: 500 mg Furosemide (Lasix -) 40 mg PO DAILY [facility] Last Admin: 03/04/18 10:22 Dose: 40 mg Labetalol HCl (Normodyne -) 400 mg PO BID [facility] Last Admin: 03/04/18 10:22 Dose: 400 mg Losartan Potassium (Cozaar -) 100 mg PO DAILY [facility] Last Admin: 03/04/18 10:22 Dose: 100 mg Melatonin (Melatonin) 20 mg PO HS [facility] Last Admin: 03/03/18 21:10 Dose: 20 mg Non-Formulary Medication (Brinzolamide/Brimonidine Tart [Simbrinza 1%-0.2% Eye Drops]) 1 drop OS BID [facility] Non-Formulary Medication (Travoprost [Travatan Z]) 1 drop OS HS [facility] Non-Formulary Medication (Thyroid,Pork [[place] Thyroid]) 180 mg PO DAILY [facility] Last Admin: 03/04/18 10:22 Dose: 180 mg Potassium Chloride (K-Dur -) 40 meq PO DAILY [facility] Last Admin: 03/04/18 10:22 Dose: 40 meq Spironolactone (Aldactone -) 25 mg PO BID [facility] Last Admin: 03/04/18 10:22 Dose: 25 mg - Objective Vital Signs: Vital Signs Temperature 98.6 F 03/04/18 05:59 Pulse Rate 78 03/04/18 05:59 Respiratory Rate 18 03/04/18 05:59 Blood Pressure 157/77 03/04/18 05:59 O2 Sat by Pulse Oximetry (%) 92 L 03/03/18 21:00 Constitutional: Yes: No Distress, Moderate Distress Neck: Yes: Supple Cardiovascular: Yes: Regular Rate and Rhythm Respiratory: Yes: Regular, Diminished Gastrointestinal: Yes: Normal Bowel Sounds, Soft, Abdomen, Obese Edema: No Labs: CBC, BMP 03/02/18 06:38 03/02/18 06:38 Problem List - Problems (1) Acute on chronic diastolic (congestive) heart failure Code(s): I50.33 - ACUTE ON CHRONIC DIASTOLIC (CONGESTIVE) HEART FAILURE (2) HTN (hypertension) Code(s): I10 - ESSENTIAL (PRIMARY) HYPERTENSION Qualifiers: Hypertension type: essential hypertension Qualified Code(s): I10 - Essential (primary) hypertension (3) Hypothyroidism Code(s): E03.9 - HYPOTHYROIDISM, UNSPECIFIED (4) Pulmonary embolism Code(s): I26.99 - OTHER PULMONARY EMBOLISM WITHOUT ACUTE COR PULMONALE Qualifiers: Pulmonary embolism type: other Assessment/Plan Echocardiography performed January 20, 2018 revealed concentric left ventricular hypertrophy with overall preserved left ventricular systolic function and ejection fraction estimated greater than 55%, mild diastolic left ventricular dysfunction, normal right ventricular size and systolic function, left atrial dilatation, thickened mitral valve leaflets with densely calcified mitral annulus and mild trans-valvular gradient with calculated mitral valve area 1.8 cm by pressure half-time, aortic valve leaflet sclerosis/calcification but no evidence of aortic valve stenosis, trace tricuspid valve regurgitation and no pericardial effusion. Echo 02/28/2018: Normal LV size and fxn, functional MS, mild [place], abnl LV compliance 1. Acute on chronic diastolic left ventricular failure improving 2. Probable coronary artery disease with no clinical angina pectoris endothelial dysfunction. 3. Mitral valve disease mitral valve stenosis mild in severity. 4. Hypertensive cardiovascular disease. 5. Hypothyroidism. 6. History of recent pulmonary thromboembolism. 7. History of a renal mass. 8. Chronic bilateral lower extremity edema most likely related to chronic venous insufficiency but as noted above pulmonary hypertension to be excluded as a culprit although echocardiography study performed January 20, 2018 did not reveal any evidence of pulmonary hypertension. 9. History of degenerative joint disease. RECOMMENDATIONS: 1. Continue Labetolol 400 bid 2. Continue Cozaar 100 qd 3. Resume Lasix 40 po qd with monitor diuretic response, renal fxn and electrolytes, replete K as you are 4. Continue Aldactone 25 bid with caution. 5. Continue Eliquis 5 bid with close monitoring of CBC. 6. Complete empiric abx course 7. Encourage ambulation
[2018-03-04] MEDS ORDERED: ALBUTEROL SO4 2.5/IPRATROPIUM 0.5 INH SOL 3 ML VIAL.NEB. NEB ONE (12:30)
--- NOTE | 2018-03-04 14:48 | PN ---
Progress Note, Physician History of Present Illness: stable no new issues - Current Medication List Current Medications: Active Medications Acetaminophen (Tylenol -) 650 mg PO Q6H PRN PRN Reason: FEVER Last Admin: 03/04/18 10:38 Dose: 650 mg Amoxicillin/Clavulanate Potassium (Augmentin - 875mg Tablet) 1 tab PO BID@0800, 1730 [facility] Last Admin: 03/04/18 08:22 Dose: 1 tab Apixaban (Eliquis -) 5 mg PO BID [facility] Last Admin: 03/04/18 10:22 Dose: 5 mg Calcium Carbonate (Calcium Carb Oral Suspension -) 500 mg PO Q8H PRN PRN Reason: INDIGESTION Last Admin: 03/01/18 23:25 Dose: 500 mg Furosemide (Lasix -) 40 mg PO DAILY [facility] Last Admin: 03/04/18 10:22 Dose: 40 mg Labetalol HCl (Normodyne -) 400 mg PO BID [facility] Last Admin: 03/04/18 10:22 Dose: 400 mg Losartan Potassium (Cozaar -) 100 mg PO DAILY [facility] Last Admin: 03/04/18 10:22 Dose: 100 mg Melatonin (Melatonin) 20 mg PO HS [facility] Last Admin: 03/03/18 21:10 Dose: 20 mg Non-Formulary Medication (Brinzolamide/Brimonidine Tart [Simbrinza 1%-0.2% Eye Drops]) 1 drop OS BID [facility] Non-Formulary Medication (Travoprost [Travatan Z]) 1 drop OS [facility] Non-Formulary Medication (Thyroid,Pork [[place] Thyroid]) 180 mg PO DAILY [facility] Last Admin: 03/04/18 10:22 Dose: 180 mg Potassium Chloride (K-Dur -) 40 meq PO DAILY [facility] Last Admin: 03/04/18 10:22 Dose: 40 meq Spironolactone (Aldactone -) 25 mg PO BID [facility] Last Admin: 03/04/18 10:22 Dose: 25 mg - Objective Vital Signs: Vital Signs Temperature 98.5 F 03/04/18 10:00 Pulse Rate 73 03/04/18 10:00 Respiratory Rate 18 03/04/18 10:00 Blood Pressure 137/73 03/04/18 10:00 O2 Sat by Pulse Oximetry (%) 94 L 03/04/18 09:00 Constitutional: Yes: No Distress, Calm Cardiovascular: Yes: S1, S2 Respiratory: Yes: Regular, CTA Bilaterally Musculoskeletal: Yes: WNL Extremities: Yes: Erythema (improving), Other Edema: LLE: 1+, RLE: 1+ Neurological: Yes: Alert, Oriented Psychiatric: Yes: Alert, Oriented Labs: CBC, BMP 03/02/18 06:38 03/02/18 06:38 Assessment/Plan Problem List - Problems (1) Acute on chronic diastolic (congestive) heart failure Code(s): I50.33 - ACUTE ON CHRONIC DIASTOLIC (CONGESTIVE) HEART FAILURE (2) HTN (hypertension) Code(s): I10 - ESSENTIAL (PRIMARY) HYPERTENSION Qualifiers: Hypertension type: essential hypertension Qualified Code(s): I10 - Essential (primary) hypertension (3) Hypothyroidism Code(s): E03.9 - HYPOTHYROIDISM, UNSPECIFIED (4) Pulmonary embolism Code(s): I26.99 - OTHER PULMONARY EMBOLISM WITHOUT ACUTE COR PULMONALE Qualifiers: Pulmonary embolism type: other 5 cellulittis of the leg cx report noted plan on oral abx rest continue as per the team
[2018-03-04] MEDS: MELATONIN 5 MG TABLETS PO SCH (22:02)
--- NOTE | 2018-03-04 23:41 | PN ---
Progress Note, Physician History of Present Illness: No new complaints - Current Medication List Current Medications: Active Medications Acetaminophen (Tylenol -) 650 mg PO Q6H PRN PRN Reason: FEVER Last Admin: 03/04/18 10:38 Dose: 650 mg Amoxicillin/Clavulanate Potassium (Augmentin - 875mg Tablet) 1 tab PO BID@0800, 1730 [facility] Last Admin: 03/04/18 17:19 Dose: 1 tab Apixaban (Eliquis -) 5 mg PO BID [facility] Last Admin: 03/04/18 22:02 Dose: 5 mg Calcium Carbonate (Calcium Carb Oral Suspension -) 500 mg PO Q8H PRN PRN Reason: INDIGESTION Last Admin: 03/01/18 23:25 Dose: 500 mg Furosemide (Lasix -) 40 mg PO DAILY [facility] Last Admin: 03/04/18 10:22 Dose: 40 mg Labetalol HCl (Normodyne -) 400 mg PO BID [facility] Last Admin: 03/04/18 22:03 Dose: 400 mg Losartan Potassium (Cozaar -) 100 mg PO DAILY [facility] Last Admin: 03/04/18 10:22 Dose: 100 mg Melatonin (Melatonin) 20 mg PO HS [facility] Last Admin: 03/04/18 22:02 Dose: 20 mg Non-Formulary Medication (Brinzolamide/Brimonidine Tart [Simbrinza 1%-0.2% Eye Drops]) 1 drop OS BID [facility] Non-Formulary Medication (Travoprost [Travatan Z]) 1 drop OS [facility] Non-Formulary Medication (Thyroid,Pork [[place] Thyroid]) 180 mg PO DAILY [facility] Last Admin: 03/04/18 10:22 Dose: 180 mg Potassium Chloride (K-Dur -) 40 meq PO DAILY [facility] Last Admin: 03/04/18 10:22 Dose: 40 meq Spironolactone (Aldactone -) 25 mg PO BID [facility] Last Admin: 03/04/18 22:03 Dose: 25 mg - Objective Vital Signs: Vital Signs Temperature 97.7 F 03/04/18 17:12 Pulse Rate 66 03/04/18 17:12 Respiratory Rate 20 03/04/18 17:12 Blood Pressure 148/73 03/04/18 17:12 O2 Sat by Pulse Oximetry (%) 94 L 03/04/18 09:00 Constitutional: Yes: Well Nourished HENT: Yes: WNL Neck: Yes: WNL, Supple Cardiovascular: Yes: WNL, Regular Rate and Rhythm Respiratory: Yes: Diminished Edema: LLE: Trace, RLE: Trace Labs: CBC, BMP 03/02/18 06:38 03/02/18 06:38 Problem List - Problems (1) Acute on chronic diastolic (congestive) heart failure Assessment/Plan: Long d/w pt and her daughter about dc planning' Pt too weak to go home and was falling at home alot PT to re-evaluate DC to STR in am Cont diuresis w/ lasix/spironolactone monitor electrolytes Code(s): I50.33 - ACUTE ON CHRONIC DIASTOLIC (CONGESTIVE) HEART FAILURE (2) Cellulitis Assessment/Plan: Cont aumgentin Code(s): L03.90 - CELLULITIS, UNSPECIFIED (3) HTN (hypertension) Assessment/Plan: BP stable Cont losartan/labetalol Code(s): I10 - ESSENTIAL (PRIMARY) HYPERTENSION Qualifiers: Hypertension type: essential hypertension Qualified Code(s): I10 - Essential (primary) hypertension (4) Hypothyroidism Assessment/Plan: Cont armour thyroid Code(s): E03.9 - HYPOTHYROIDISM, UNSPECIFIED (5) Pulmonary embolism Assessment/Plan: Cont Eliquis Code(s): I26.99 - OTHER PULMONARY EMBOLISM WITHOUT ACUTE COR PULMONALE Qualifiers: Pulmonary embolism type: other
[2018-03-05] MEDS: ACETAMINOPHEN 325 MG TABLET (FP) PO PRN ×3 (02:24→20:01)
[2018-03-05] MEDS: POTASSIUM CHLORIDE TABS 20 MEQ TABLET.ER (FP) PO SCH (10:25)
[2018-03-05] MEDS: AMOX TR/POT CLAV 875MG/125MG TABLETS (FP) PO SCH ×2 (10:25→17:28)
[2018-03-05] MEDS: LABETALOL HCL 200 MG TABLET (FP) PO SCH ×2 (10:25→21:34)
[2018-03-05] MEDS: SPIRONOLACTONE 25 MG TABLET (FP) PO SCH ×2 (10:26→21:35)
[2018-03-05] MEDS: THYROID PORK 180 MG PO SCH (10:27)
[2018-03-05] MEDS: FUROSEMIDE 40 MG TABLET (FP) PO SCH (10:27)
[2018-03-05] MEDS: LOSARTAN POTASSIUM 50 MG TABLET (FP) PO SCH (10:27)
[2018-03-05] MEDS: APIXABAN 5 MG TABLET PO SCH ×2 (10:27→21:35)
--- NOTE | 2018-03-05 14:19 | PN ---
Progress Note, Physician History of Present Illness: Dyspnea and lower extremity edema improving with diuresis. Ambulating without dyspnea. - Current Medication List Current Medications: Active Medications Acetaminophen (Tylenol -) 650 mg PO Q6H PRN PRN Reason: FEVER Last Admin: 03/05/18 10:56 Dose: 650 mg Amoxicillin/Clavulanate Potassium (Augmentin - 875mg Tablet) 1 tab PO BID@0800, 1730 [facility] Last Admin: 03/05/18 10:25 Dose: 1 tab Apixaban (Eliquis -) 5 mg PO BID [facility] Last Admin: 03/05/18 10:27 Dose: 5 mg Calcium Carbonate (Calcium Carb Oral Suspension -) 500 mg PO Q8H PRN PRN Reason: INDIGESTION Last Admin: 03/01/18 23:25 Dose: 500 mg Furosemide (Lasix -) 40 mg PO DAILY [facility] Last Admin: 03/05/18 10:27 Dose: 40 mg Labetalol HCl (Normodyne -) 400 mg PO BID [facility] Last Admin: 03/05/18 10:25 Dose: 400 mg Losartan Potassium (Cozaar -) 100 mg PO DAILY [facility] Last Admin: 03/05/18 10:27 Dose: 100 mg Melatonin (Melatonin) 20 mg PO HS [facility] Last Admin: 03/04/18 22:02 Dose: 20 mg Non-Formulary Medication (Brinzolamide/Brimonidine Tart [Simbrinza 1%-0.2% Eye Drops]) 1 drop OS BID [facility] Non-Formulary Medication (Travoprost [Travatan Z]) 1 drop OS HS [facility] Non-Formulary Medication (Thyroid,Pork [[place] Thyroid]) 180 mg PO DAILY [facility] Last Admin: 03/05/18 10:27 Dose: 180 mg Potassium Chloride (K-Dur -) 40 meq PO DAILY [facility] Last Admin: 03/05/18 10:25 Dose: 40 meq Spironolactone (Aldactone -) 25 mg PO BID [facility] Last Admin: 03/05/18 10:26 Dose: 25 mg - Objective Vital Signs: Vital Signs Temperature 97.2 F L 03/05/18 05:00 Pulse Rate 76 03/05/18 05:00 Respiratory Rate 18 03/05/18 05:00 Blood Pressure 147/99 03/05/18 05:00 O2 Sat by Pulse Oximetry (%) 95 03/05/18 08:56 Constitutional: Yes: No Distress, Calm Neck: Yes: Supple Cardiovascular: Yes: Regular Rate and Rhythm Respiratory: Yes: Regular, Diminished, On Nasal O2 Gastrointestinal: Yes: Normal Bowel Sounds, Soft Edema: Yes Edema: LLE: 1+, RLE: 1+ Labs: CBC, BMP 03/02/18 06:38 03/02/18 06:38 - ....Imaging EKG: Report Reviewed (Tele: SR) Problem List - Problems (1) Acute on chronic diastolic (congestive) heart failure Code(s): I50.33 - ACUTE ON CHRONIC DIASTOLIC (CONGESTIVE) HEART FAILURE (2) HTN (hypertension) Code(s): I10 - ESSENTIAL (PRIMARY) HYPERTENSION Qualifiers: Hypertension type: essential hypertension Qualified Code(s): I10 - Essential (primary) hypertension (3) Hypothyroidism Code(s): E03.9 - HYPOTHYROIDISM, UNSPECIFIED (4) Pulmonary embolism Code(s): I26.99 - OTHER PULMONARY EMBOLISM WITHOUT ACUTE COR PULMONALE Qualifiers: Pulmonary embolism type: other Assessment/Plan Echocardiography performed January 20, 2018 revealed concentric left ventricular hypertrophy with overall preserved left ventricular systolic function and ejection fraction estimated greater than 55%, mild diastolic left ventricular dysfunction, normal right ventricular size and systolic function, left atrial dilatation, thickened mitral valve leaflets with densely calcified mitral annulus and mild trans-valvular gradient with calculated mitral valve area 1.8 cm by pressure half-time, aortic valve leaflet sclerosis/calcification but no evidence of aortic valve stenosis, trace tricuspid valve regurgitation and no pericardial effusion. Echo 02/28/2018: Normal LV size and fxn, functional MS, mild [place], abnl LV compliance 1. Acute on chronic diastolic left ventricular failure improving 2. Probable coronary artery disease with no clinical angina pectoris endothelial dysfunction. 3. Mitral valve disease mitral valve stenosis mild in severity. 4. Hypertensive cardiovascular disease. 5. Hypothyroidism. 6. History of recent pulmonary thromboembolism. 7. History of a renal mass. 8. Chronic bilateral lower extremity edema most likely related to chronic venous insufficiency but as noted above pulmonary hypertension to be excluded as a culprit although echocardiography study performed January 20, 2018 did not reveal any evidence of pulmonary hypertension. 9. History of degenerative joint disease. RECOMMENDATIONS: 1. Continue Labetolol 400 bid 2. Continue Cozaar 100 qd 3. Continue Lasix 40 po qd with monitor diuretic response, renal fxn and electrolytes, replete K as you are 4. Continue Aldactone 25 bid with caution. 5. Continue Eliquis 5 bid with close monitoring of CBC. 6. Complete empiric abx course 7. Encourage ambulation, PT->SNF
--- NOTE | 2018-03-05 14:39 | PN ---
Progress Note, Physician History of Present Illness: Pt is afebrile. Has no new complaints. Denies pain in LE. No diarrhea/abd discomfort. - Current Medication List Current Medications: Active Medications Acetaminophen (Tylenol -) 650 mg PO Q6H PRN PRN Reason: FEVER Last Admin: 03/05/18 10:56 Dose: 650 mg Amoxicillin/Clavulanate Potassium (Augmentin - 875mg Tablet) 1 tab PO BID@0800, 1730 [facility] Last Admin: 03/05/18 10:25 Dose: 1 tab Apixaban (Eliquis -) 5 mg PO BID [facility] Last Admin: 03/05/18 10:27 Dose: 5 mg Calcium Carbonate (Calcium Carb Oral Suspension -) 500 mg PO Q8H PRN PRN Reason: INDIGESTION Last Admin: 03/01/18 23:25 Dose: 500 mg Furosemide (Lasix -) 40 mg PO DAILY [facility] Last Admin: 03/05/18 10:27 Dose: 40 mg Labetalol HCl (Normodyne -) 400 mg PO BID [facility] Last Admin: 03/05/18 10:25 Dose: 400 mg Losartan Potassium (Cozaar -) 100 mg PO DAILY [facility] Last Admin: 03/05/18 10:27 Dose: 100 mg Melatonin (Melatonin) 20 mg PO HS [facility] Last Admin: 03/04/18 22:02 Dose: 20 mg Non-Formulary Medication (Brinzolamide/Brimonidine Tart [Simbrinza 1%-0.2% Eye Drops]) 1 drop OS BID [facility] Non-Formulary Medication (Travoprost [Travatan Z]) 1 drop OS HS [facility] Non-Formulary Medication (Thyroid,Pork [[place] Thyroid]) 180 mg PO DAILY [facility] Last Admin: 03/05/18 10:27 Dose: 180 mg Potassium Chloride (K-Dur -) 40 meq PO DAILY [facility] Last Admin: 03/05/18 10:25 Dose: 40 meq Spironolactone (Aldactone -) 25 mg PO BID [facility] Last Admin: 03/05/18 10:26 Dose: 25 mg - Objective Vital Signs: Vital Signs Temperature 97.5 F L 03/05/18 14:20 Pulse Rate 67 03/05/18 14:20 Respiratory Rate 18 03/05/18 14:20 Blood Pressure 142/74 03/05/18 14:20 O2 Sat by Pulse Oximetry (%) 94 L 03/05/18 10:00 Constitutional: Yes: No Distress Cardiovascular: Yes: Regular Rate and Rhythm Respiratory: Yes: Regular Gastrointestinal: Yes: Normal Bowel Sounds, Soft Extremities: Yes: Erythema (mild b/l LE erythema/edema, no warmth/tenderness) Labs: CBC, BMP 03/02/18 06:38 03/02/18 06:38 Problem List - Problems (1) Acute on chronic diastolic (congestive) heart failure Code(s): I50.33 - ACUTE ON CHRONIC DIASTOLIC (CONGESTIVE) HEART FAILURE (2) Cellulitis Code(s): L03.90 - CELLULITIS, UNSPECIFIED (3) Heart failure Code(s): I50.9 - HEART FAILURE, UNSPECIFIED Qualifiers: Heart failure type: other Qualified Code(s): I50.89 - Other heart failure; I50.8 - Other heart failure (4) Hypothyroidism Code(s): E03.9 - HYPOTHYROIDISM, UNSPECIFIED Assessment/Plan - LE cellulitis - stable cont. current antibiotics
--- NOTE | 2018-03-05 16:50 | HP ---
Admitting History and Physical - Admission History of Present Illness: This was entered in error This is not a history and physical but a daily progress note - Past Medical History Cardiovascular: Yes: CHF, HTN - Smoking History Smoking history: Never smoked Have you smoked in the past 12 months: No - Alcohol/Substance Use Hx Alcohol Use: No Home Medications - Allergies Allergies/Adverse Reactions: Allergies Allergy/AdvReac Type Severity Reaction Status Date / Time No Known Allergies Allergy Verified 02/28/18 12:14 - Home Medications Home Medications: Ambulatory Orders Apixaban [Eliquis] 5 mg PO BID 02/28/18 Brinzolamide/Brimonidine Tart [Simbrinza 1%-0.2% Eye Drops] 1 drop OS BID Furosemide [Lasix] 40 mg PO DAILY 02/28/18 Hydrochlorothiazide [Hctz -] 25 mg PO DAILY 02/28/18 Labetalol HCl [Normodyne -] 400 mg PO BID 02/28/18 Losartan Potassium 100 mg PO DAILY 02/28/18 Melatonin 20 mg PO HS 02/28/18 Potassium Chloride 20 meq PO DAILY 02/28/18 Thyroid,Pork [[place] Thyroid] 180 mg PO DAILY 02/28/18 Travoprost [Travatan Z] 1 drop OS HS 02/28/18 Amoxicillin/Potassium Clav [Augmentin 875-125 Tablet] 1 each PO BID #10 tablet 03/03/18 Furosemide [Lasix -] 40 mg PO DAILY tablet 03/03/18 Spironolactone [Aldactone -] 25 mg PO BID #60 tablet 03/03/18 Physical Examination Vital Signs: Vital Signs Temperature 97.5 F L 03/05/18 14:20 Pulse Rate 67 03/05/18 14:20 Respiratory Rate 18 03/05/18 14:20 Blood Pressure 142/74 03/05/18 14:20 O2 Sat by Pulse Oximetry (%) 94 L 03/05/18 10:00 Constitutional: Yes: Well Nourished Neck: Yes: WNL, Supple Cardiovascular: Yes: WNL, Regular Rate and Rhythm Respiratory: Yes: Diminished Gastrointestinal: Yes: WNL, Normal Bowel Sounds, Soft, Abdomen, Obese Edema: LLE: Trace, RLE: Trace Labs: CBC, BMP 03/02/18 06:38 03/02/18 06:38 Problem List - Problems (1) Acute on chronic diastolic (congestive) heart failure Assessment/Plan: Long d/w pt and her daughter about dc planning' Pt too weak to go home and was falling at home alot PT to re-evaluate Cont diuresis w/ lasix/spironolactone monitor electrolytes Code(s): I50.33 - ACUTE ON CHRONIC DIASTOLIC (CONGESTIVE) HEART FAILURE (2) Cellulitis Assessment/Plan: Cont aumgentin Code(s): L03.90 - CELLULITIS, UNSPECIFIED (3) HTN (hypertension) Assessment/Plan: BP stable Cont losartan/labetalol Code(s): I10 - ESSENTIAL (PRIMARY) HYPERTENSION Qualifiers: Hypertension type: essential hypertension Qualified Code(s): I10 - Essential (primary) hypertension (4) Hypothyroidism Assessment/Plan: Cont armour thyroid Code(s): E03.9 - HYPOTHYROIDISM, UNSPECIFIED (5) Pulmonary embolism Assessment/Plan: Cont Eliquis Code(s): I26.99 - OTHER PULMONARY EMBOLISM WITHOUT ACUTE COR PULMONALE Qualifiers: Pulmonary embolism type: other
[2018-03-05] MEDS ORDERED: PT OWN MED DRAWER 7, Y5N ONE (21:33)
[2018-03-05] MEDS: MELATONIN 5 MG TABLETS PO SCH (21:35)
[2018-03-06] MEDS: AMOX TR/POT CLAV 875MG/125MG TABLETS (FP) PO SCH ×2 (11:44→17:30)
[2018-03-06] MEDS: LOSARTAN POTASSIUM 50 MG TABLET (FP) PO SCH (11:44)
[2018-03-06] MEDS: APIXABAN 5 MG TABLET PO SCH ×2 (11:45→21:26)
[2018-03-06] MEDS: LABETALOL HCL 200 MG TABLET (FP) PO SCH ×2 (11:45→21:27)
[2018-03-06] MEDS: FUROSEMIDE 40 MG TABLET (FP) PO SCH (11:45)
[2018-03-06] MEDS: SPIRONOLACTONE 25 MG TABLET (FP) PO SCH ×2 (11:45→21:26)
[2018-03-06] MEDS: POTASSIUM CHLORIDE TABS 20 MEQ TABLET.ER (FP) PO SCH (11:45)
[2018-03-06] MEDS: THYROID PORK 180 MG PO SCH (11:46)
--- NOTE | 2018-03-06 13:14 | PN ---
Progress Note, Physician History of Present Illness: Dyspnea and lower extremity edema improving with diuresis. Ambulating without dyspnea. - Current Medication List Current Medications: Active Medications Acetaminophen (Tylenol -) 650 mg PO Q6H PRN PRN Reason: FEVER Last Admin: 03/05/18 20:01 Dose: 650 mg Amoxicillin/Clavulanate Potassium (Augmentin - 875mg Tablet) 1 tab PO BID@0800, 1730 [facility] Last Admin: 03/06/18 11:44 Dose: 1 tab Apixaban (Eliquis -) 5 mg PO BID [facility] Last Admin: 03/06/18 11:45 Dose: 5 mg Calcium Carbonate (Calcium Carb Oral Suspension -) 500 mg PO Q8H PRN PRN Reason: INDIGESTION Last Admin: 03/01/18 23:25 Dose: 500 mg Furosemide (Lasix -) 40 mg PO DAILY [facility] Last Admin: 03/06/18 11:45 Dose: 40 mg Labetalol HCl (Normodyne -) 400 mg PO BID [facility] Last Admin: 03/06/18 11:45 Dose: 400 mg Losartan Potassium (Cozaar -) 100 mg PO DAILY [facility] Last Admin: 03/06/18 11:44 Dose: 100 mg Melatonin (Melatonin) 20 mg PO HS [facility] Last Admin: 03/05/18 21:35 Dose: 20 mg Non-Formulary Medication (Brinzolamide/Brimonidine Tart [Simbrinza 1%-0.2% Eye Drops]) 1 drop OS BID [facility] Non-Formulary Medication (Travoprost [Travatan Z]) 1 drop OS HS [facility] Non-Formulary Medication (Thyroid,Pork [[place] Thyroid]) 180 mg PO DAILY [facility] Last Admin: 03/06/18 11:46 Dose: 180 mg Potassium Chloride (K-Dur -) 40 meq PO DAILY [facility] Last Admin: 03/06/18 11:45 Dose: 40 meq Spironolactone (Aldactone -) 25 mg PO BID [facility] Last Admin: 03/06/18 11:45 Dose: 25 mg - Objective Vital Signs: Vital Signs Temperature 98 F 03/06/18 09:00 Pulse Rate 78 03/06/18 09:00 Respiratory Rate 20 03/06/18 09:00 Blood Pressure 150/89 03/06/18 09:00 O2 Sat by Pulse Oximetry (%) 95 03/05/18 20:42 Constitutional: Yes: No Distress, Calm Neck: Yes: Supple Cardiovascular: Yes: Regular Rate and Rhythm Respiratory: Yes: Regular, Diminished, On Nasal O2 Gastrointestinal: Yes: Normal Bowel Sounds, Soft Edema: Yes Edema: LLE: 1+, RLE: 1+ Labs: CBC, BMP 03/02/18 06:38 03/02/18 06:38 - ....Imaging EKG: Report Reviewed (Tele: SR) Problem List - Problems (1) Acute on chronic diastolic (congestive) heart failure Code(s): I50.33 - ACUTE ON CHRONIC DIASTOLIC (CONGESTIVE) HEART FAILURE (2) HTN (hypertension) Code(s): I10 - ESSENTIAL (PRIMARY) HYPERTENSION Qualifiers: Hypertension type: essential hypertension Qualified Code(s): I10 - Essential (primary) hypertension (3) Hypothyroidism Code(s): E03.9 - HYPOTHYROIDISM, UNSPECIFIED (4) Pulmonary embolism Code(s): I26.99 - OTHER PULMONARY EMBOLISM WITHOUT ACUTE COR PULMONALE Qualifiers: Pulmonary embolism type: other Assessment/Plan Echocardiography performed January 20, 2018 revealed concentric left ventricular hypertrophy with overall preserved left ventricular systolic function and ejection fraction estimated greater than 55%, mild diastolic left ventricular dysfunction, normal right ventricular size and systolic function, left atrial dilatation, thickened mitral valve leaflets with densely calcified mitral annulus and mild trans-valvular gradient with calculated mitral valve area 1.8 cm by pressure half-time, aortic valve leaflet sclerosis/calcification but no evidence of aortic valve stenosis, trace tricuspid valve regurgitation and no pericardial effusion. Echo 02/28/2018: Normal LV size and fxn, functional MS, mild FL, abnl LV compliance 1. Acute on chronic diastolic left ventricular failure improving 2. Probable coronary artery disease with no clinical angina pectoris endothelial dysfunction. 3. Mitral valve disease mitral valve stenosis mild in severity. 4. Hypertensive cardiovascular disease. 5. Hypothyroidism. 6. History of recent pulmonary thromboembolism. 7. History of a renal mass. 8. Chronic bilateral lower extremity edema most likely related to chronic venous insufficiency with overlying cellulitus 9. History of degenerative joint disease. RECOMMENDATIONS: 1. Continue Labetolol 400 bid 2. Continue Cozaar 100 qd 3. Continue Lasix 40 po qd with monitor diuretic response, renal fxn and electrolytes, replete K as you are 4. Continue Aldactone 25 bid with caution. 5. Continue Eliquis 5 bid with close monitoring of CBC. 6. Complete empiric abx course 7. Encourage ambulation, PT->SNF
--- NOTE | 2018-03-06 14:15 | PN ---
Progress Note, Physician History of Present Illness: Pt clinically the same. No new complaints. Remains afebrile. - Current Medication List Current Medications: Active Medications Acetaminophen (Tylenol -) 650 mg PO Q6H PRN PRN Reason: FEVER Last Admin: 03/05/18 20:01 Dose: 650 mg Amoxicillin/Clavulanate Potassium (Augmentin - 875mg Tablet) 1 tab PO BID@0800, 1730 [facility] Last Admin: 03/06/18 11:44 Dose: 1 tab Apixaban (Eliquis -) 5 mg PO BID [facility] Last Admin: 03/06/18 11:45 Dose: 5 mg Calcium Carbonate (Calcium Carb Oral Suspension -) 500 mg PO Q8H PRN PRN Reason: INDIGESTION Last Admin: 03/01/18 23:25 Dose: 500 mg Furosemide (Lasix -) 40 mg PO DAILY [facility] Last Admin: 03/06/18 11:45 Dose: 40 mg Labetalol HCl (Normodyne -) 400 mg PO BID [facility] Last Admin: 03/06/18 11:45 Dose: 400 mg Losartan Potassium (Cozaar -) 100 mg PO DAILY [facility] Last Admin: 03/06/18 11:44 Dose: 100 mg Melatonin (Melatonin) 20 mg PO HS [facility] Last Admin: 03/05/18 21:35 Dose: 20 mg Non-Formulary Medication (Brinzolamide/Brimonidine Tart [Simbrinza 1%-0.2% Eye Drops]) 1 drop OS BID [facility] Non-Formulary Medication (Travoprost [Travatan Z]) 1 drop OS HS [facility] Non-Formulary Medication (Thyroid,Pork [[place] Thyroid]) 180 mg PO DAILY [facility] Last Admin: 03/06/18 11:46 Dose: 180 mg Potassium Chloride (K-Dur -) 40 meq PO DAILY [facility] Last Admin: 03/06/18 11:45 Dose: 40 meq Spironolactone (Aldactone -) 25 mg PO BID [facility] Last Admin: 03/06/18 11:45 Dose: 25 mg - Objective Vital Signs: Vital Signs Temperature 98 F 03/06/18 09:00 Pulse Rate 78 03/06/18 09:00 Respiratory Rate 20 03/06/18 09:00 Blood Pressure 150/89 03/06/18 09:00 O2 Sat by Pulse Oximetry (%) 95 03/05/18 20:42 Constitutional: Yes: No Distress Cardiovascular: Yes: Regular Rate and Rhythm Respiratory: Yes: Regular Gastrointestinal: Yes: Normal Bowel Sounds Extremities: Yes: Erythema (b/l LE erythema/warmth) Edema: LLE: 2+, RLE: 2+ Labs: CBC, BMP 03/02/18 06:38 03/02/18 06:38 Problem List - Problems (1) Acute on chronic diastolic (congestive) heart failure Code(s): I50.33 - ACUTE ON CHRONIC DIASTOLIC (CONGESTIVE) HEART FAILURE (2) Cellulitis Code(s): L03.90 - CELLULITIS, UNSPECIFIED (3) Heart failure Code(s): I50.9 - HEART FAILURE, UNSPECIFIED Qualifiers: Heart failure type: other Qualified Code(s): I50.89 - Other heart failure; I50.8 - Other heart failure (4) Hypothyroidism Code(s): E03.9 - HYPOTHYROIDISM, UNSPECIFIED Assessment/Plan -b/l LE cellulitis - chronic LE edema - stable - continue Augmentin for now
--- NOTE | 2018-03-06 18:38 | PN ---
Progress Note, Physician History of Present Illness: No new complaints - Current Medication List Current Medications: Active Medications Acetaminophen (Tylenol -) 650 mg PO Q6H PRN PRN Reason: FEVER Last Admin: 03/05/18 20:01 Dose: 650 mg Amoxicillin/Clavulanate Potassium (Augmentin - 875mg Tablet) 1 tab PO BID@0800, 1730 [facility] Last Admin: 03/06/18 11:44 Dose: 1 tab Apixaban (Eliquis -) 5 mg PO BID [facility] Last Admin: 03/06/18 11:45 Dose: 5 mg Calcium Carbonate (Calcium Carb Oral Suspension -) 500 mg PO Q8H PRN PRN Reason: INDIGESTION Last Admin: 03/01/18 23:25 Dose: 500 mg Furosemide (Lasix -) 40 mg PO DAILY [facility] Last Admin: 03/06/18 11:45 Dose: 40 mg Labetalol HCl (Normodyne -) 400 mg PO BID [facility] Last Admin: 03/06/18 11:45 Dose: 400 mg Losartan Potassium (Cozaar -) 100 mg PO DAILY [facility] Last Admin: 03/06/18 11:44 Dose: 100 mg Melatonin (Melatonin) 20 mg PO HS [facility] Last Admin: 03/05/18 21:35 Dose: 20 mg Non-Formulary Medication (Brinzolamide/Brimonidine Tart [Simbrinza 1%-0.2% Eye Drops]) 1 drop OS BID [facility] Non-Formulary Medication (Travoprost [Travatan Z]) 1 drop OS [facility] Non-Formulary Medication (Thyroid,Pork [[place] Thyroid]) 180 mg PO DAILY [facility] Last Admin: 03/06/18 11:46 Dose: 180 mg Potassium Chloride (K-Dur -) 40 meq PO DAILY [facility] Last Admin: 03/06/18 11:45 Dose: 40 meq Spironolactone (Aldactone -) 25 mg PO BID [facility] Last Admin: 03/06/18 11:45 Dose: 25 mg - Objective Vital Signs: Vital Signs Temperature 97.8 F 03/06/18 18:16 Pulse Rate 81 03/06/18 18:16 Respiratory Rate 18 03/06/18 18:16 Blood Pressure 156/82 03/06/18 18:16 O2 Sat by Pulse Oximetry (%) 95 03/06/18 09:00 Constitutional: Yes: Well Nourished Neck: Yes: WNL, Supple Cardiovascular: Yes: WNL, Regular Rate and Rhythm Respiratory: Yes: Diminished Gastrointestinal: Yes: WNL, Normal Bowel Sounds, Soft, Abdomen, Obese Edema: LLE: Trace, RLE: Trace Labs: CBC, BMP 03/02/18 06:38 03/02/18 06:38 Problem List - Problems (1) Acute on chronic diastolic (congestive) heart failure Assessment/Plan: Long d/w pt and her daughter about dc planning' Pt too weak to go home and was falling at home alot PT to re-evaluate DC to STR in am Cont diuresis w/ lasix/spironolactone monitor electrolytes Code(s): I50.33 - ACUTE ON CHRONIC DIASTOLIC (CONGESTIVE) HEART FAILURE (2) Cellulitis Assessment/Plan: Cont aumgentin Code(s): L03.90 - CELLULITIS, UNSPECIFIED (3) HTN (hypertension) Assessment/Plan: BP stable Cont losartan/labetalol Code(s): I10 - ESSENTIAL (PRIMARY) HYPERTENSION Qualifiers: Hypertension type: essential hypertension Qualified Code(s): I10 - Essential (primary) hypertension (4) Hypothyroidism Assessment/Plan: Cont armour thyroid Code(s): E03.9 - HYPOTHYROIDISM, UNSPECIFIED (5) Pulmonary embolism Assessment/Plan: Cont Eliquis Code(s): I26.99 - OTHER PULMONARY EMBOLISM WITHOUT ACUTE COR PULMONALE Qualifiers: Pulmonary embolism type: other
[2018-03-06] MEDS ORDERED: PT OWN MED DRAWER 7, Y5N ONE (21:25)
[2018-03-06] MEDS: MELATONIN 5 MG TABLETS PO SCH (21:27)
[2018-03-06] MEDS: ACETAMINOPHEN 325 MG TABLET (FP) PO PRN (21:30)
[2018-03-07] MEDS: FUROSEMIDE 40 MG TABLET (FP) PO SCH (09:45)
[2018-03-07] MEDS: APIXABAN 5 MG TABLET PO SCH (09:45)
[2018-03-07] MEDS: LOSARTAN POTASSIUM 50 MG TABLET (FP) PO SCH (09:45)
[2018-03-07] MEDS: AMOX TR/POT CLAV 875MG/125MG TABLETS (FP) PO SCH ×2 (09:45→17:25)
[2018-03-07] MEDS: LABETALOL HCL 200 MG TABLET (FP) PO SCH (09:45)
[2018-03-07] MEDS: POTASSIUM CHLORIDE TABS 20 MEQ TABLET.ER (FP) PO SCH (09:45)
[2018-03-07] MEDS: SPIRONOLACTONE 25 MG TABLET (FP) PO SCH (09:45)
[2018-03-07] MEDS: THYROID PORK 180 MG PO SCH (09:46)
--- NOTE | 2018-03-07 11:26 | DS ---
Physical Examination Vital Signs: Vital Signs Temperature 97.7 F 03/07/18 05:58 Pulse Rate 87 03/07/18 05:58 Respiratory Rate 20 03/07/18 05:58 Blood Pressure 156/96 03/07/18 05:58 O2 Sat by Pulse Oximetry (%) 97 03/06/18 20:28 Constitutional: Yes: No Distress HENT: Yes: Atraumatic Neck: Yes: Supple Cardiovascular: Yes: Regular Rate and Rhythm Respiratory: Yes: CTA Bilaterally Gastrointestinal: Yes: Normal Bowel Sounds Extremities: Yes: WNL Peripheral Pulses WNL: Yes Neurological: Yes: Alert, Oriented Labs: CBC, BMP 03/02/18 06:38 03/02/18 06:38 Discharge Summary Reason For Visit: DIASTOLIC CHF Current Active Problems Abdominal wall cellulitis (Acute) Acute on chronic diastolic (congestive) heart failure (Acute) Cellulitis (Acute) HTN (hypertension) (Acute) Heart failure (Acute) Hypothyroidism (Acute) Pulmonary embolism (Acute) Condition: Stable - Instructions Referrals: Dara Biggs MD [Staff Physician] - Disposition: [facility] - Home Medications Comprehensive Discharge Medication List: Ambulatory Orders Apixaban [Eliquis] 5 mg PO BID 02/28/18 Brinzolamide/Brimonidine Tart [Simbrinza 1%-0.2% Eye Drops] 1 drop OS BID Furosemide [Lasix] 40 mg PO DAILY 02/28/18 Hydrochlorothiazide [Hctz -] 25 mg PO DAILY 02/28/18 Labetalol HCl [Normodyne -] 400 mg PO BID 02/28/18 Losartan Potassium 100 mg PO DAILY 02/28/18 Melatonin 20 mg PO HS 02/28/18 Potassium Chloride 20 meq PO DAILY 02/28/18 Thyroid,Pork [[place] Thyroid] 180 mg PO DAILY 02/28/18 Travoprost [Travatan Z] 1 drop OS HS 02/28/18 Furosemide [Lasix -] 40 mg PO DAILY tablet 03/03/18 Spironolactone [Aldactone -] 25 mg PO BID #60 tablet 03/03/18 abx couse completed
--- NOTE | 2018-03-07 11:43 | PN ---
Progress Note, Physician Chief Complaint: Events noted Not in distress History of Present Illness: Patient was seen and examined. Awake and alert. Chart was reviewed Denies chest pain, SOB or palpitations - Current Medication List Current Medications: Active Medications Acetaminophen (Tylenol -) 650 mg PO Q6H PRN PRN Reason: FEVER Last Admin: 03/06/18 21:30 Dose: 650 mg Amoxicillin/Clavulanate Potassium (Augmentin - 875mg Tablet) 1 tab PO BID@0800, 1730 [facility] Last Admin: 03/07/18 09:45 Dose: 1 tab Apixaban (Eliquis -) 5 mg PO BID [facility] Last Admin: 03/07/18 09:45 Dose: 5 mg Calcium Carbonate (Calcium Carb Oral Suspension -) 500 mg PO Q8H PRN PRN Reason: INDIGESTION Last Admin: 03/01/18 23:25 Dose: 500 mg Furosemide (Lasix -) 40 mg PO DAILY [facility] Last Admin: 03/07/18 09:45 Dose: 40 mg Labetalol HCl (Normodyne -) 400 mg PO BID [facility] Last Admin: 03/07/18 09:45 Dose: 400 mg Losartan Potassium (Cozaar -) 100 mg PO DAILY [facility] Last Admin: 03/07/18 09:45 Dose: 100 mg Melatonin (Melatonin) 20 mg PO HS [facility] Last Admin: 03/06/18 21:27 Dose: 20 mg Non-Formulary Medication (Brinzolamide/Brimonidine Tart [Simbrinza 1%-0.2% Eye Drops]) 1 drop OS BID [facility] Non-Formulary Medication (Travoprost [Travatan Z]) 1 drop OS [facility] Non-Formulary Medication (Thyroid,Pork [[place] Thyroid]) 180 mg PO DAILY [facility] Last Admin: 03/07/18 09:46 Dose: 180 mg Potassium Chloride (K-Dur -) 40 meq PO DAILY [facility] Last Admin: 03/07/18 09:45 Dose: 40 meq Spironolactone (Aldactone -) 25 mg PO BID [facility] Last Admin: 03/07/18 09:45 Dose: 25 mg - Objective Vital Signs: Vital Signs Temperature 97.7 F 03/07/18 05:58 Pulse Rate 87 03/07/18 05:58 Respiratory Rate 20 03/07/18 05:58 Blood Pressure 156/96 03/07/18 05:58 O2 Sat by Pulse Oximetry (%) 97 03/06/18 20:28 Constitutional: Yes: Well Nourished Eyes: Yes: PERRL HENT: Yes: Atraumatic Neck: Yes: Supple Cardiovascular: Yes: Regular Rate and Rhythm, S1, S2. No: Murmur Respiratory: Yes: CTA Bilaterally Gastrointestinal: Yes: Normal Bowel Sounds, Soft. No: Tenderness Edema: Yes Edema: LLE: 1+, RLE: 1+ Additional Findings/Remarks: - Review of Systems Constitutional: denies: Weakness. denies: Chills, Fever Cardiovascular: denies: Chest Pain, Palpitations, Shortness of Breath Respiratory: denies: Cough, denies: Hemoptysis, Orthopnea, PND, SOB, SOB on Exertion Gastrointestinal: denies: Abdominal Pain, Constipation, Diarrhea, Melena, Nausea , Rectal Bleeding, Vomiting Musculoskeletal: denies: Muscle Weakness Neurological: denies: Unsteady Gait, Weakness. denies: Confusion, Dizziness, Headache, Numbness, Seizure, Syncope Problem List - Problems (1) Acute on chronic diastolic (congestive) heart failure Code(s): I50.33 - ACUTE ON CHRONIC DIASTOLIC (CONGESTIVE) HEART FAILURE (2) Cellulitis Code(s): L03.90 - CELLULITIS, UNSPECIFIED (3) HTN (hypertension) Code(s): I10 - ESSENTIAL (PRIMARY) HYPERTENSION Qualifiers: Hypertension type: essential hypertension Qualified Code(s): I10 - Essential (primary) hypertension (4) Hypothyroidism Code(s): E03.9 - HYPOTHYROIDISM, UNSPECIFIED (5) Pulmonary embolism Code(s): I26.99 - OTHER PULMONARY EMBOLISM WITHOUT ACUTE COR PULMONALE Qualifiers: Pulmonary embolism type: other (6) Mitral valve stenosis Code(s): I05.0 - RHEUMATIC MITRAL STENOSIS Qualifiers: Cardiac valve disease etiology: nonrheumatic Qualified Code(s): I34.2 - Nonrheumatic mitral (valve) stenosis Assessment/Plan 1. Acute on chronic diastolic left ventricular failure 2. Probable coronary artery disease with no clinical angina pectoris endothelial dysfunction. 3. Mitral valve disease mitral valve stenosis mild in severity. 4. Hypertensive cardiovascular disease. 5. Hypothyroidism. 6. History of recent pulmonary thromboembolism. 7. History of a renal mass. 8. Chronic bilateral lower extremity edema most likely related to chronic venous insufficiency with overlying cellulitus 9. History of degenerative joint disease. RECOMMENDATIONS: 1. Continue Labetolol 400 bid 2. Continue Cozaar 100 qd 3. Continue Lasix 40 po qd with monitoring renal function and electrolytes 4. Continue Aldactone 25 bid with caution. 5. Continue Eliquis 5 bid with close monitoring of CBC. 6. Complete empiric antibiotic course 7. Encourage ambulation and PT. Await SNF transfer Yazan Del Rio MD
--- NOTE | 2018-03-07 13:49 | PN ---
Progress Note, Physician History of Present Illness: stable no new issues - Current Medication List Current Medications: Active Medications Acetaminophen (Tylenol -) 650 mg PO Q6H PRN PRN Reason: FEVER Last Admin: 03/06/18 21:30 Dose: 650 mg Amoxicillin/Clavulanate Potassium (Augmentin - 875mg Tablet) 1 tab PO BID@0800, 1730 [facility] Last Admin: 03/07/18 09:45 Dose: 1 tab Apixaban (Eliquis -) 5 mg PO BID [facility] Last Admin: 03/07/18 09:45 Dose: 5 mg Calcium Carbonate (Calcium Carb Oral Suspension -) 500 mg PO Q8H PRN PRN Reason: INDIGESTION Last Admin: 03/01/18 23:25 Dose: 500 mg Furosemide (Lasix -) 40 mg PO DAILY [facility] Last Admin: 03/07/18 09:45 Dose: 40 mg Labetalol HCl (Normodyne -) 400 mg PO BID [facility] Last Admin: 03/07/18 09:45 Dose: 400 mg Losartan Potassium (Cozaar -) 100 mg PO DAILY [facility] Last Admin: 03/07/18 09:45 Dose: 100 mg Melatonin (Melatonin) 20 mg PO HS [facility] Last Admin: 03/06/18 21:27 Dose: 20 mg Non-Formulary Medication (Brinzolamide/Brimonidine Tart [Simbrinza 1%-0.2% Eye Drops]) 1 drop OS BID [facility] Non-Formulary Medication (Travoprost [Travatan Z]) 1 drop OS [facility] Non-Formulary Medication (Thyroid,Pork [[place] Thyroid]) 180 mg PO DAILY [facility] Last Admin: 03/07/18 09:46 Dose: 180 mg Potassium Chloride (K-Dur -) 40 meq PO DAILY [facility] Last Admin: 03/07/18 09:45 Dose: 40 meq Spironolactone (Aldactone -) 25 mg PO BID [facility] Last Admin: 03/07/18 09:45 Dose: 25 mg - Objective Vital Signs: Vital Signs Temperature 97.7 F 03/07/18 05:58 Pulse Rate 87 03/07/18 05:58 Respiratory Rate 20 03/07/18 05:58 Blood Pressure 156/96 03/07/18 05:58 O2 Sat by Pulse Oximetry (%) 97 03/06/18 20:28 Constitutional: Yes: No Distress, Calm Cardiovascular: Yes: Regular Rate and Rhythm Respiratory: Yes: Regular, CTA Bilaterally Gastrointestinal: Yes: Normal Bowel Sounds, Soft Musculoskeletal: Yes: WNL Extremities: Yes: WNL Neurological: Yes: Alert, Oriented Psychiatric: Yes: Alert Labs: CBC, BMP 03/02/18 06:38 03/02/18 06:38 Assessment/Plan Problem List - Problems (1) Acute on chronic diastolic (congestive) heart failure Code(s): I50.33 - ACUTE ON CHRONIC DIASTOLIC (CONGESTIVE) HEART FAILURE (2) HTN (hypertension) Code(s): I10 - ESSENTIAL (PRIMARY) HYPERTENSION Qualifiers: Hypertension type: essential hypertension Qualified Code(s): I10 - Essential (primary) hypertension (3) Hypothyroidism Code(s): E03.9 - HYPOTHYROIDISM, UNSPECIFIED (4) Pulmonary embolism Code(s): I26.99 - OTHER PULMONARY EMBOLISM WITHOUT ACUTE COR PULMONALE Qualifiers: Pulmonary embolism type: other 5 cellulittis of the leg cx report noted plan on oral abx finish oral abx course
[2018-03-07 18:04] VITALS: BP 135/83; PULSE 75; TEMP 98.2
== END 2018-03-07 21:01 | DRG 292 ==
LOC: JER 12:12 → JERBED 15:21 → J4S 19:03
PROVIDERS: ADMIT Internal Medicine; ATTEND Internal Medicine
DX: I11.0 Hypertensive heart disease with heart failure (principal); L03.115 Cellulitis of right lower limb; L03.116 Cellulitis of left lower limb; I50.33 Acute on chronic diastolic (congestive) heart failure; E03.9 Hypothyroidism, unspecified; Z86.711 Personal history of pulmonary embolism; I27.20 Pulmonary hypertension, unspecified; I05.0 Rheumatic mitral stenosis
CPT/HCPCS: 36415; 71045-TC-FY; 80048; 80053; 81003; 81015; 82550; 82553; 83880; 84443; 84484; 85025; 87086; 93005; 93010; 93306-TC; 93970-TC; 94640; 97116-GP; 97161-GP; 99284-25; J7620